=== PATIENT | male | born 1955 | race Caucasian/White ===

== ENCOUNTER → 2017-03-07 | Outpatient (CLI) | payer OTHER ==
--- NOTE | 2017-03-07 14:15 | CT ---
EXAMINATION TYPE: CT iac wo con DATE OF EXAM: 03/07/2017 COMPARISON: NONE HISTORY: 61-year-old male complains of left side hearing loss and drainage. Cholesteatoma. CT DLP: 150 mGycm Automated exposure control for dose reduction was used. TECHNIQUE: Contiguous high-resolution axial scanning of the temporal bones performed without contras t. Coronal reformatted images obtained. FINDINGS: There is no abnormality of visualized intracranial structures. Bilateral external auditory canals appear patent. Extensive post surgical changes to the left mastoid bone with large contiguous resection cavity betwe en the mastoid air cells and middle ear cavity. There is some irregular soft tissue thickening around the margin of the resection cavity. Opacification of some residual mastoid air cells on the left. 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 The right middle ear cavity and mastoid air cells remain well pneumatized. Unable to exclude small area of dehiscence of the wall of the left lateral semicircular canal, refer to axial image 35 and coronal image 75. The vestibular aqueduct are well visualized. The facial nerve canal is normal bilaterally. The internal auditory canal and meati are symmetrical bilaterally. There is no evidence of fractures. Mild mucosal thickening throughout the ethmoid air cells. Reformatted images confirm above findings. IMPRESSION: 1. Extensive postsurgical changes involving the left temporal bone with a contiguous resection cavity involving the mastoid air cells and middle ear cavity. 2. Some irregular soft tissue thickening around the margin of the resection cavity could represent sc ar tissue, inflammatory debris, or residual cholesteatoma. The few residual mastoid air cells on this side are opacified. 3. An ovoid 7 x 3 mm ossicle, bone debris, or osteoma interposed in the anterior crevice of the left middle ear cavity. The normal middle ear anatomy is lost. 4. Severe bony thickening, possible bony dehiscence involving the wall of the left lateral semicircul ar canal, axial image 35 and coronal image 75.
== END | disposition home or self-care (01) ==
LOC: RADCTMAIN 13:04
PROVIDERS: ATTEND Otolaryngology
DX: R93.7 Abnormal findings on diagnostic imaging of other parts of musculoskeletal system (principal); H91.90 Unspecified hearing loss, unspecified ear; H71.92 Unspecified cholesteatoma, left ear; Z98.890 Other specified postprocedural states
CPT/HCPCS: 70480

== ENCOUNTER 2019-09-13 15:23 | Emergency (ER) | payer OTHER ==
[2019-09-13 15:30] VITALS: RESP 18
--- NOTE | 2019-09-13 15:51 | ED ---
General Adult HPI - General Chief complaint: Extremity Injury, Upper Stated complaint: right hand Time Seen by Provider: 09/13/19 15:39 Source: patient Mode of arrival: ambulatory Limitations: no limitations - History of Present Illness Initial comments: Dictation was produced using [employer] dictation software. please excuse any grammatical, word or spelling errors. This patient was cared for during a federal and state declared state of emergency secondary to Covid 19 Chief Complaint: 63-year-old male presents with crush injury to the right hand. History of Present Illness: 63-year-old male he [facility]. Patient states he was working on his motorcycle when he was resting his hand on a plastic piece on top of a motor. A metal pole crushed his hand causing. The plastic piece under his volar surface of the hand shattered. Patient denies any motor weakness of the hand. He was [facility] at [facility] was performed showing second metacarpal fracture. He was sent here due to concerns of possible plastic foreign body embedded in the hand from the crush injury. He had 3 small lacerations that were repaired on the dorsum of the hand using she nylon sutures. He has no other complaints. The ROS documented in this emergency department record has been reviewed and confirmed by me. Those systems with pertinent positive or negative responses have been documented in the HPI. All other systems are other negative and/or noncontributory. PHYSICAL EXAM: General Impression: Alert and oriented x3, not in acute distress HEENT: Normocephalic atraumatic, extra-ocular movements intact, pupils equal and reactive to light bilaterally, mucous membranes moist. Cardiovascular: Heart regular rate and rhythm Chest: Able to complete full sentences, no retractions, no tachypnea Abdomen: abdomen soft, non-tender, non-distended, no organomegaly Musculoskeletal: Pulses present and equal in all extremities, no peripheral edema Motor: no focal deficits noted Right hand: soiled with what appears to be motor debris. There are 3 simple interrupted sutures on the dorsum of the hand. There is a 1 cm laceration over the volar surface of the hand just overlying the second MCP. Neurological: CN II-XII grossly intact, no focal motor or sensory deficits noted Skin: Intact with no visualized rashes Psych: Normal affect and mood ED course: 63-year-old male presents with crush injury and laceration to the right hand. Vital signs upon arrival are within acceptable limits. Patient has no motor deficits. He does state that he is known to same parts of his hand. He states that he did receive local anesthesia from the suture repair. His motor function is intact however antalgic. X-rays obtained showing displaced fracture of the second metacarpal. There is a laceration to the volar side of the hand concerning for open fracture. She does not reveal any foreign bodies. Physical examination does not show any exposed bone. Case is discussed in detail with Xena who is therapeutic recreation leader for advanced orthopedics. She was set patient be placed in a radial gutter splint and discharge to follow up with orthopedic surgery clinic for follow-up. She does not recommend immediate operative intervention at this time. Patient given a dose of Ancef. He will be given prescription for antibiotics and analgesics. Patient referral to orthopedic surgery. He is advised to contact the office tomorrow to make an appointment. - Related Data Previous Rx's Medication Instructions Recorded Cephalexin [Keflex] 500 mg PO Q6HR 5 Days #20 cap 09/13/19 HYDROcodone/APAP 5-325MG [[place] 1 tab PO Q6HR PRN 3 Days #12 tab 09/13/19 5-325] Allergies Allergy/AdvReac Type Severity Reaction Status Date / Time No Known Allergies Allergy Verified 09/13/19 15:26 Review of Systems ROS Statement: Those systems with pertinent positive or pertinent negative responses have been documented in the HPI. ROS Other: All systems not noted in ROS Statement are negative. Past Medical History Past Medical History: No Reported History History of Any Multi-Drug Resistant Organisms: None Reported Past Surgical History: Ear Surgery Past Psychological History: No Psychological Hx Reported Smoking Status: Never smoker Past Alcohol Use History: None Reported Past Drug Use History: None Reported General Exam Limitations: no limitations Course Vital Signs 09/13/19 15:26 Temperature 98 F Pulse Rate 79 Respiratory 18 Rate Blood Pressure 134/76 O2 Sat by Pulse 97 Oximetry Procedures - Orthopedic Splinting/Casting Injury #1 Side: right Upper Extremity Injury Location: hand Upper Extremity Immobilizer: finger (other) (radial gutter) Disposition Clinical Impression: Metacarpal bone fracture, Crush injury of hand Disposition: HOME SELF-CARE Condition: Fair Instructions (If sedation given, give patient instructions): Hand Fracture (ED) Prescriptions: Cephalexin [Keflex] 500 mg PO Q6HR 5 Days #20 cap HYDROcodone/APAP 5-325MG [[place] 5-325] 1 tab PO Q6HR PRN 3 Days #12 tab PRN Reason: Severe Pain Is patient prescribed a controlled substance at d/c from ED?: Yes If prescribed controlled substance>3 days was MAPS reviewed?: Prescribed <3 Days Referrals: Js Contreras DO [Doctor of Osteopathic Medicine] - 1-2 days Time of Disposition: 17:20
[2019-09-13] MEDS ORDERED: DIPH,PERTUS(ACELL)TETVAC-LF 0.5 ML VIAL IM ONE (16:18)
--- NOTE | 2019-09-13 16:19 | XR ---
EXAMINATION TYPE: XR hand complete RT DATE OF EXAM: 09/13/2019 COMPARISON: NONE HISTORY: Pain TECHNIQUE: Three views are submitted. FINDINGS: There is a displaced comminuted fracture involving the distal right second metacarpal. Soft tissue ed burke and emphysema noted. IMPRESSION: 1. Displaced fracture second metacarpal.
[2019-09-13 17:34] VITALS: BP 127/74; PULSE 78; TEMP 98.2
== END 2019-09-13 17:34 | disposition home or self-care (01) ==
LOC: EC 15:23
DX: S62.390A Other fracture of second metacarpal bone, right hand, initial encounter for closed fracture (principal); S61.411A Laceration without foreign body of right hand, initial encounter; Z23 Encounter for immunization; W23.0XXA Caught, crushed, jammed, or pinched between moving objects, initial encounter; Y93.89 Activity, other specified
CPT/HCPCS: 73130; 90715; 99283; 96365; 90471; 12001; J0690

== ENCOUNTER 2020-05-14 22:30 | Emergency (ER) | payer OTHER ==
[2020-05-15 00:30] LABS: Potassium 4.2 mmol/L (3.5-5.1)
--- NOTE | 2020-05-15 00:43 | ED ---
Recheck HPI - General Chief Complaint: Recheck/Abnormal Lab/Rx Stated Complaint: Irregular Labs Time Seen by Provider: 05/15/20 00:38 Source: patient, RN notes reviewed Mode of arrival: ambulatory Limitations: physical limitation - History of Present Illness Initial Comments: Patient is a 64-year-old male that comes the ER to get rechecked labs due to [facility] He is in no apparent distress pain while standing up during exam and interview. He notes that he feels fine and has no chest pain or shortness of breath no palpitations. He denied any complaints or issues. He denied any chest pain shortness breath headache nausea vomiting diarrhea constipation fever fatigue chills. - Related Data Previous Rx's Medication Instructions Recorded Cephalexin [Keflex] 500 mg PO Q6HR 5 Days #20 cap 09/13/19 HYDROcodone/APAP 5-325MG [[place] 1 tab PO Q6HR PRN 3 Days #12 tab 09/13/19 5-325] Allergies Allergy/AdvReac Type Severity Reaction Status Date / Time No Known Allergies Allergy Verified 05/14/20 23:42 Review of Systems ROS Statement: Those systems with pertinent positive or pertinent negative responses have been documented in the HPI. ROS Other: All systems not noted in ROS Statement are negative. Past Medical History Past Medical History: No Reported History Additional Past Medical History / Comment(s): [place]- deaf on lt History of Any Multi-Drug Resistant Organisms: None Reported Past Surgical History: Back Surgery, Ear Surgery Past Psychological History: No Psychological Hx Reported Smoking Status: Never smoker Past Alcohol Use History: None Reported Past Drug Use History: None Reported General Exam Limitations: physical limitation General appearance: alert, in no apparent distress Head exam: Present: atraumatic, normocephalic, normal inspection Eye exam: Present: normal appearance, PERRL, EOMI. Absent: scleral icterus, conjunctival injection, periorbital swelling ENT exam: Present: normal exam, mucous membranes moist, other (Patient is hard of hearing on the left side.) Neck exam: Present: normal inspection. Absent: tenderness, meningismus, lymphadenopathy Respiratory exam: Present: normal lung sounds bilaterally. Absent: respiratory distress, wheezes, rales, rhonchi, stridor Cardiovascular Exam: Present: regular rate, normal rhythm, normal heart sounds. Absent: systolic murmur, diastolic murmur, rubs, gallop, clicks GI/Abdominal exam: Present: soft, normal bowel sounds. Absent: distended, tenderness, guarding, rebound, rigid Extremities exam: Present: normal inspection, full ROM, normal capillary refill. Absent: tenderness, pedal edema, joint swelling, calf tenderness Neurological exam: Present: alert, oriented X3, CN II-XII intact Psychiatric exam: Present: normal affect, normal mood Skin exam: Present: warm, dry, intact, normal color. Absent: rash Course Vital Signs 05/14/20 23:37 Temperature 98.7 F Pulse Rate 75 Respiratory 18 Rate Blood Pressure 135/84 O2 Sat by Pulse 95 Oximetry Medical Decision Making - Medical Decision Making 64-year-old male with abnormal labs at the [facility] on 05/14/2020, potassium of 6.1. Lites ordered, all within normal limits. Case discussed with Dr. Kent, she can discharge home. - Lab Data Result diagrams: 05/14/20 23:53 Lab Results 05/14/20 Range/Units 23:53 Sodium 138 (137-145) mmol/L Potassium 4.2 (3.5-5.1) mmol/L Chloride 105 (98-107) mmol/L Carbon Dioxide 25 (22-30) mmol/L Anion Gap 8 mmol/L Disposition Clinical Impression: Hyperkalemia Disposition: HOME SELF-CARE Condition: Stable Instructions (If sedation given, give patient instructions): Hyperkalemia (ED) Additional Instructions: Please return to the Emergency Department if symptoms worsen or any other concerns. Follow-up primary care in 3-5 days. Continue to increase oral fluid intake. If any chest pain or palpitations please return the emergency Department Is patient prescribed a controlled substance at d/c from ED?: No Referrals: [facility],Clinic [Primary Care Provider] - 1-2 days Time of Disposition: 00:43
[2020-05-15 01:30] VITALS: BP 141/65; PULSE 72; RESP 20; TEMP 98.3
== END 2020-05-15 01:00 | disposition home or self-care (01) ==
LOC: EC 22:30
DX: E87.5 Hyperkalemia (principal)
CPT/HCPCS: 36415; 80051; 93005; 99285

== ENCOUNTER 2020-11-28 22:47 | Emergency (ER) | payer OTHER ==
[2020-11-28 23:47] LABS: Basophils # (A) 0.1 k/uL (0-0.2); Basophils % (A) 0 %; Eosinophils # (A) 0.2 k/uL (0-0.7); Eosinophils % (A) 1 %; HCT 47.7 % (39.0-53.0); HGB 16.6 gm/dL (13.0-17.5); Lymphocytes # (A) 2.5 k/uL (1.0-4.8); Lymphocytes % (A) 18 %; MCH 31.7 pg (25.0-35.0); MCHC 34.8 g/dL (31.0-37.0); Mean Platelet Volume 9.2; Monocytes # (A) 0.7 k/uL (0-1.0); Monocytes % (A) 5 %; Neutrophils # (A) 10.7 k/uL (1.3-7.7); Neutrophils % (A) 75 %; Platelet Count 202 k/uL (150-450); RBC 5.25 m/uL (4.30-5.90); RDW 12.3 % (11.5-15.5); WBC 14.3 k/uL (3.8-10.6)
[2020-11-28] MEDS ORDERED: LORazepam 2 MG/ML INJ IV STA (23:50)
[2020-11-29 00:07] LABS: INR 0.9 (<1.2); Partial Thromboplastin Time 24.2 sec (22.0-30.0); Prothrombin Time 10.2 sec (9.0-12.0)
[2020-11-29 00:09] LABS: ALT 22 U/L (4-49); AST 32 U/L (17-59); African American GFR (CKD) 80 (>60 ml/min/1.73 sqM); Alcohol <10 mg/dL; Alkaline Phosphatase 81 U/L (38-126); Anion Gap 8 mmol/L; Blood Urea Nitrogen 20 mg/dL (9-20); Calcium 9.5 mg/dL (8.4-10.2); Carbon Dioxide 26 mmol/L (22-30); Chloride 104 mmol/L (98-107); Glucose 106 mg/dL (74-99); Magnesium 1.8 mg/dL (1.6-2.3); Non-African American GFR(CKD) 69 (>60 ml/min/1.73 sqM); Potassium 4.4 mmol/L (3.5-5.1); Sodium 138 mmol/L (137-145); Total Bilirubin 0.8 mg/dL (0.2-1.3); Total Protein 7.2 g/dL (6.3-8.2)
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
--- NOTE | 2020-11-29 00:48 | XR ---
EXAMINATION TYPE: XR chest 1V portable DATE OF EXAM: 11/29/2020 COMPARISON: NONE HISTORY: Cough TECHNIQUE: Single view FINDINGS: There is some mild coarse interstitial density in the lower lung nicole. There are chest le ads. There are no hilar masses. Bony thorax is intact. Heart size is normal. IMPRESSION: No active cardiopulmonary disease.
--- NOTE | 2020-11-29 01:07 | CT ---
EXAMINATION TYPE: CT brain wo con DATE OF EXAM: 11/29/2020 COMPARISON: None HISTORY: AMS. no prior on PACS. CT DLP: 1188.4 mGycm Automated exposure control for dose reduction was used. Ventricles have normal size. There is no mass effect nor midline shift. There is no sign of intracran ial hemorrhage. Calvarium is intact. Skull base is intact. There is limited pneumatization of the lef t mastoid sinus. There is previous surgery at the left temporal bone. IMPRESSION: No acute intracranial abnormality. Left mastoid sinus surgery. 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
[2020-11-29 03:04] LABS: Appearance,Urine Clear (Clear); Bilirubin,Urine Negative (Negative); Blood,Urine Negative (Negative); Color,Urine Yellow; Glucose,Urine (UA) Negative (Negative); Ketones,Urine Negative (Negative); Leukocyte Esterase,Urine Negative (Negative); Nitrite,Urine Negative (Negative); Protein,Urine Negative (Negative); Specific Gravity,Urine 1.018 (1.001-1.035); Urobilinogen,Urine <2.0 mg/dL (<2.0)
[2020-11-29 03:16] LABS: Amphetamine Screen,Urine Not Detected (NotDetected); Barbiturate Screen,Urine Not Detected (NotDetected); Benzodiazepines Screen,Urine Detected (NotDetected); Cocaine Screen,Urine Not Detected (NotDetected); Methadone Screen, Urine Not Detected (NotDetected); Opiate Screen,Urine Not Detected (NotDetected); Oxycodone Screen, Urine Not Detected (NotDetected); Phencyclidine Screen,Urine Not Detected (NotDetected); Tricyclic Antidepressant,Urine Not Detected (NotDetected); Urn Cannabinoid Scrn Not Detected (NotDetected)
[2020-11-29 03:46] VITALS: BP 114/78; PULSE 96; RESP 20; TEMP 98.7
== END 2020-11-29 02:55 | disposition home or self-care (01) ==
LOC: EC 22:47
DX: T78.40XA Allergy, unspecified, initial encounter (principal)
CPT/HCPCS: 36415; 93005; 85379; 83880; 80053; 83605; 83735; 84484; 85025; 85610; 85730; 81003; 80306; 80320; 71045; 70450; 99285; 96374; J2060

== ENCOUNTER → 2022-08-11 | Outpatient (CLI) | payer OTHER ==
--- NOTE | 2022-08-12 10:17 | CA ---
Transthoracic Echo Report Name: Lenader Underwood Age: 66 Gender: M : 1955 Exam Date: 08/11/2022 13:04 Exam Location: [facility] Ht (in): 68 Wt (lb): 165 Ordering Physician: AMADO ND, Clinic Attending/Referring Phys: Dioni Roe PAC Manager [place] Criss Medina RDCS Procedure CPT: Indications: R55 Syncope Cardiac Hx: Technical Quality: Good Contrast 1: Total Dose (mL): Contrast 2: Total Dose (mL): MEASUREMENTS (Male / Female) Normal Values 2D ECHO LV Diastolic Diameter PLAX 4.1 cm 4.2 - 5.9 / 3.9 - 5.3 cm LV Systolic Diameter PLAX 2.8 cm IVS Diastolic Thickness 0.9 cm 0.6 - 1.0 / 0.6 - 0.9 cm LVPW Diastolic Thickness 1.0 cm 0.6 - 1.0 / 0.6 - 0.9 cm LV Relative Wall Thickness 0.5 RV Internal Dim ED PLAX 3.5 cm LA Systolic Diameter LX 3.4 cm 3.0 - 4.0 / 2.7 - 3.8 cm LV Diastolic Volume MOD 4C 60.8 cm??? LV Systolic Volume MOD 4C 31.5 cm??? LV Ejection Fraction MOD 4C 48.2 % LV Cardiac Index MOD 4C 1169.7 cm???/min???m??? LV Diastolic Length 4C 7.7 cm LV Systolic Length 4C 6.0 cm LV Diastolic Volume MOD 2C 75.8 cm??? LV Systolic Volume MOD 2C 29.6 cm??? LV Ejection Fraction MOD 2C 61.0 % LV Cardiac Index MOD 2C 1845.7 cm???/min???m??? LV Diastolic Length 2C 7.9 cm LV Systolic Length 2C 6.2 cm LA Volume 50.7 cm??? 18 - 58 / 22 - 52 cm??? M-MODE Aortic Root Diameter MM 3.7 cm MV E Point Septal Separation 1.0 cm AV Cusp Separation MM 2.4 cm DOPPLER AV Peak Velocity 121.4 cm/s AV Peak Gradient 5.9 mmHg AI Peak Velocity 360.0 cm/s AI Peak Gradient 51.8 mmHg AI Pressure Half Time 939.0 ms MV Area PHT 2.6 cm??? Mitral E Point Velocity 71.3 cm/s Mitral A Point Velocity 90.7 cm/s Mitral E to A Ratio 0.8 MV Deceleration Time 289.1 ms MV E' Velocity 4.6 cm/s Mitral E to MV E' Ratio 15.5 TR Peak Velocity 220.0 cm/s TR Peak Gradient 19.4 mmHg Right Ventricular Systolic Press 24.0 mmHg FINDINGS Left Ventricle Left ventricular ejection fraction is estimated at 55-60 %. Left ventricular cavity size normal. Left ventricular wall thickness normal. Normal left ventricular wall motion. Right Ventricle Mild right ventricular dilatation. Right ventricular systolic pressure within normal limits. Right Atrium Normal right atrial size. Left Atrium Normal left atrial size. Mitral Valve Structurally normal mitral valve. No mitral stenosis. Trace to mild mitral regurgitation. Aortic Valve Trileaflet aortic valve. Mild aortic regurgitation. Tricuspid Valve Structurally normal tricuspid valve. Mild tricuspid regurgitation. Pulmonic Valve Structurally normal pulmonic valve. Mild pulmonic regurgitation. Pericardium Normal pericardium. No pericardial effusion. Aorta Normal size aortic root and proximal ascending aorta. CONCLUSIONS Normal LV size and systolic function. Mild mitral tricuspid and aortic insufficiency. No significant pulmonary hypertension. No pericardial effusion Previewed by: Dr. Imtiaz Iglesias MD (Electronically Signed) Final Date: 12 August 2022 10:16
== END | disposition home or self-care (01) ==
LOC: RADECHMAIN 12:56
DX: I08.1 Rheumatic disorders of both mitral and tricuspid valves (principal); R55 Syncope and collapse
CPT/HCPCS: 93306

== ENCOUNTER 2022-11-08 16:45 | Observation (INO) | payer OTHER ==
[2022-11-08] MEDS ORDERED: IPRATROPIUM-ALBUTEROL 3 ML NEB INHALATION STA ×3 (17:12→17:53)
[2022-11-08] MEDS ORDERED: SODIUM CHLORIDE 0.9% 1,000 ML IV STA (17:12)
[2022-11-08] MEDS ORDERED: LORazepam 2 MG/ML INJ IV STA (17:12)
[2022-11-08] MEDS ORDERED: MORPHINE SULFATE 2 MG/ML SYRINGE IVP STA (17:12)
--- NOTE | 2022-11-08 17:13 | ED ---
SOB HPI - General Stated Complaint: SOB Time Seen by Provider: 11/08/22 16:53 Source: RN notes reviewed, old records reviewed Mode of arrival: EMS Limitations: no limitations - History of Present Illness Initial Comments: This is a 66-year-old male to the emergency department for evaluation. Patient presents today for evaluation regards to severe shortness of breath syncopal e vent. Patient does have a history of heart appearing was at urgent care today when he was given a breathing treatment had difficulty breathing became allegedly bronchospastic and passed out. Patient does have history of equilibrium imbalance loss of frequent syncopal events. Patient admits to mary condon shortness of breath Complaint: shortness of breath, cough, "asthma attack", anxiety -: hour(s) Severity: severe Severity scale (1-10): 9 Consistency: constant Improves With: nothing Worsens With: nothing Associated Symptoms: pain with inspiration, cough, other (Syncopal event) Treatments Prior to Arrival: none - Related Data Home Medications Medication Instructions Recorded Confirmed hydroCHLOROthiazide [Hydrodiuril] 12.5 mg PO DAILY 11/08/22 11/08/22 Previous Rx's Medication Instructions Recorded Famotidine 20 mg PO DAILY #30 tablet 11/10/22 Fluticasone Nasal [place] [Flonase 1 spray EA NOSTRIL DAILY #16 gm 11/10/22 Nasal [place]] lamoTRIgine [LaMICtal] See Rx Instructions .ROUTE 11/10/22 .COMPLEX #252 tab Allergies Allergy/AdvReac Type Severity Reaction Status Date / Time No Known Allergies Allergy Verified 11/08/22 18:59 Review of Systems ROS Statement: Those systems with pertinent positive or pertinent negative responses have been documented in the HPI. ROS Other: All systems not noted in ROS Statement are negative. Past Medical History Past Medical History: No Reported History Additional Past Medical History / Comment(s): [place]- deaf on lt History of Any Multi-Drug Resistant Organisms: None Reported Past Surgical History: Back Surgery, Ear Surgery Past Psychological History: No Psychological Hx Reported Smoking Status: Never smoker Past Alcohol Use History: None Reported Past Drug Use History: None Reported General Exam General appearance: alert, in no apparent distress, anxious Head exam: Present: atraumatic, normocephalic, normal inspection Eye exam: Present: normal appearance, PERRL, EOMI. Absent: scleral icterus, conjunctival injection, periorbital swelling ENT exam: Present: normal exam, mucous membranes moist Neck exam: Present: normal inspection. Absent: tenderness, meningismus, lympha denopathy Respiratory exam: Present: normal lung sounds bilaterally. Absent: respiratory distress, wheezes, rales, rhonchi, stridor Cardiovascular Exam: Present: regular rate, normal rhythm, normal heart sounds. Absent: systolic murmur, diastolic murmur, rubs, gallop, clicks GI/Abdominal exam: Present: soft, normal bowel sounds. Absent: distended, tenderness, guarding, rebound, rigid Extremities exam: Present: normal inspection, full ROM, normal capillary refill. Absent: tenderness, pedal edema, joint swelling, calf tenderness Back exam: Present: normal inspection Neurological exam: Present: alert, oriented X3, CN II-XII intact Psychiatric exam: Present: normal affect, normal mood Skin exam: Present: warm, dry, intact, normal color. Absent: rash Course Vital Signs 11/08/22 11/08/22 11/08/22 16:46 17:53 18:00 Temperature 98.4 F Pulse Rate 91 90 96 Pulse Rate [ Pulse Oximetery ] Respiratory 34 H Rate Blood Pressure 113/63 Blood Pressure [Right Arm] O2 Sat by Pulse 98 Oximetry 11/08/22 11/08/22 11/08/22 19:00 22:00 23:00 Temperature Pulse Rate 80 78 Pulse Rate [ Pulse Oximetery ] Respiratory 19 18 18 Rate Blood Pressure 110/76 111/72 Blood Pressure [Right Arm] O2 Sat by Pulse 95 94 L 95 Oximetry 11/09/22 11/09/22 11/09/22 04:00 05:00 07:54 Temperature 97.4 F L Pulse Rate 76 Pulse Rate [ 74 Pulse Oximetery ] Respiratory 14 18 Rate Blood Pressure 109/72 Blood Pressure 126/82 [Right Arm] O2 Sat by Pulse 93 L 96 96 Oximetry 11/09/22 11/09/22 11/09/22 08:02 08:08 15:00 Temperature 97.6 F Pulse Rate 68 75 Pulse Rate [ 67 Pulse Oximetery ] Respiratory 16 16 18 Rate Blood Pressure Blood Pressure 115/77 [Right Arm] O2 Sat by Pulse 99 96 Oximetry - Reevaluation(s) Reevaluation #1: 11/08/22 19:52 Medical records reviewed Reevaluation #2: 11/08/22 19:52 Patient showing worsening symptoms here in the ER, worsening symptoms after breathing treatment with increased cough congestion and family concerned for some altered mental status Patient was just given morphine and Ativan Reevaluation #3: Patient informed results and questions answered Reevaluation #4: 11/08/22 19:53 Was pt. sent in by a medical professional or institution (, [facility], [facility], urgent care, hospital, or group home...) When possible be specific @ -no Did you speak to anyone other than the patient for history (EMS, parent, family, police, friend...)? What history was obtained from this source @ -no Did you review nursing and triage notes (agree or disagree)? Why? @ -agree Are old charts reviewed (outside hosp., previous admission, EMS record, old EKG, old radiological studies, urgent care reports/EKG's, group home records)? Report findings @ -yes Differential Diagnosis (chest pain, altered mental status, abdominal pain women, abdominal pain men, vaginal bleeding, weakness, fever, dyspnea, syncope, headache, dizziness, GI bleed, back pain, seizure, CVA, palpatations, mental health, musculoskeletal)? @ -prior EKG interpreted by me (3pts min.). @ -yes X-rays interpreted by me (1pt min.). @ -yes CT interpreted by me (1pt min.). @ -yes U/S interpreted by me (1pt. min.). @ -no What testing was considered but not performed or refused? (CT, X-rays, U/S, labs)? Why? @ -none What meds were considered but not given or refused? Why? @ -none Did you discuss the management of the patient with other professionals (professionals i.e. [facility] Patel, [facility], lab, RT, psych nurse, rn social work, farm management supervisor, teacher, budget officer, comp field case manager)? Give summary @ -no Was smoking cessation discussed for >3mins.? @ -no Was critical care preformed (if so, how long)? @ -no Were there social determinants of health that impacted care today? How? (Homelessness, low income, unemployed, alcoholism, drug addiction, transpo rtation, low edu. Level, literacy, decrease access to med. care, group home, rehab)? @ -none Was there de-escalation of care discussed even if they declined (Discuss DNR or withdrawal of care, Hospice)? DNR status @ -no What co-morbidities impacted this encounter? (DM, HTN, Smoking, COPD, CAD, Cancer, CVA, ARF, Chemo, Hep., AIDS, mental health diagnosis, sleep apnea, morbid obesity)? @ -none Was patient admitted / discharged? Hospital course, mention meds given and route, prescriptions, significant lab abnormalities, going to OR and other pertinent info. @ - 67 male to the emergency department for evaluation. Patient presents today for evaluation of severe bronchitis and COPD with bronchospasm but improving here in the ER although patient has multiple recurrent syncopal events. Patient be admitted for cause of syncope Admitted Undiagnosed new problem with uncertain prognosis? @ -no Drug Therapy requiring intensive monitoring for toxicity (Heparin, Nitro, Insulin, Cardizem)? @ -no Were any procedures done? @ -no Diagnosis/symptom? @ -Syncope, bronchospasm, dyspnea Acute, or Chronic, or Acute on Chronic? @ -Acute Uncomplicated (without systemic symptoms) or Complicated (systemic symptoms)? @ -Complicated Side effects of treatment? @ -no Exacerbation, Progression, or Severe Exacerbation? @ -exacerbation Poses a threat to life or bodily function? How? (Chest pain, [place], [place], pneumonia, PE, COPD, DKA, ARF, appy, cholecystitis, CVA, Diverticulitis, Homicidal, Suicidal, threat to staff... and all critical care pts) @ -yes Reevaluation #5: 11/08/22 19:53 Differential Dyspnea: Coronary syndrome, arrhythmia, tamponade, asthma, COPD, pulmonary embolism, pneumonia, pneumothorax, pulmonary effusion, anaphylaxis, diabetic ketoacidosis, flailed chest, pulmonary contusion, diaphragmatic rupture, anemia, neuromuscular, this is not meant to be an all-inclusive list. Differential Syncope: Valvular disease, hypertrophic cardiomyopathy, pulmonary embolism, tamponade, tachycardia, bradycardia, [place], hypovolemia, hemorrhage, dissection, anemia, intracranial hemorrhage, seizure, hypoglycemia, carbon monoxide poisoning, this is not meant to be an all-inclusive list. - Consultations Consultation #1: Spoke with sound who agrees to admit the patient Medical Decision Making - Medical Decision Making 67 male to the emergency department for evaluation. Patient presents today for evaluation of severe bronchitis and COPD with bronchospasm but improving here in the ER although patient has multiple recurrent syncopal events. Patient be admitted for cause of syncope - Lab Data Result diagrams: 11/09/22 06:53 11/09/22 06:53 Lab Results 11/08/22 11/08/22 11/08/22 Range/Units 18:02 18:02 19:13 WBC 14.3 H (3.8-10.6) k/uL RBC 5.36 (4.30-5.90) m/uL Hgb 16.4 (13.0-17.5) gm/dL Hct 48.2 (39.0-53.0) % MCV 90.0 (80.0-100.0) fL MCH 30.7 (25.0-35.0) pg MCHC 34.1 (31.0-37.0) g/dL RDW 13.2 (11.5-15.5) % Plt Count 228 (150-450) k/uL MPV 9.9 Neutrophils % 84 % Lymphocytes % 12 % Monocytes % 3 % Eosinophils % 1 % Basophils % 0 % Neutrophils # 12.1 H (1.3-7.7) k/uL Lymphocytes # 1.7 (1.0-4.8) k/uL Monocytes # 0.4 (0-1.0) k/uL Eosinophils # 0.1 (0-0.7) k/uL Basophils # 0.0 (0-0.2) k/uL PT 10.6 (9.0-12.0) sec INR 1.0 (<1.2) APTT 23.8 (22.0-30.0) sec D-Dimer 0.66 H (<0.60) mg/L FEU Sodium (137-145) mmol/L Potassium (3.5-5.1) mmol/L Chloride (98-107) mmol/L Carbon Dioxide (22-30) mmol/L Anion Gap mmol/L BUN (9-20) mg/dL Creatinine (0.66-1.25) mg/dL Est GFR (CKD-EPI)AfAm (>60 ml/min/1.73 sqM) Est GFR (CKD-EPI)NonAf (>60 ml/min/1.73 sqM) Glucose (74-99) mg/dL Calcium (8.4-10.2) mg/dL Magnesium (1.6-2.3) mg/dL Total Bilirubin (0.2-1.3) mg/dL AST (17-59) U/L ALT (4-49) U/L Alkaline Phosphatase (38-126) U/L Troponin I (0.000-0.034) ng/mL NT-Pro-B Natriuret Pep pg/mL Total Protein (6.3-8.2) g/dL Albumin (3.5-5.0) g/dL Influenza Type A (PCR) Not Detected (Not Detectd) Influenza Type B (PCR) Not Detected (Not Detectd) RSV (PCR) Not Detected (Not Detectd) SARS-CoV-2 (PCR) Not Detected (Not Detectd) 11/08/22 11/08/22 Range/Units 19:55 19:55 WBC (3.8-10.6) k/uL RBC (4.30-5.90) m/uL Hgb (13.0-17.5) gm/dL Hct (39.0-53.0) % MCV (80.0-100.0) fL MCH (25.0-35.0) pg MCHC (31.0-37.0) g/dL RDW (11.5-15.5) % Plt Count (150-450) k/uL MPV Neutrophils % % Lymphocytes % % Monocytes % % Eosinophils % % Basophils % % Neutrophils # (1.3-7.7) k/uL Lymphocytes # (1.0-4.8) k/uL Monocytes # (0-1.0) k/uL Eosinophils # (0-0.7) k/uL Basophils # (0-0.2) k/uL PT (9.0-12.0) sec INR (<1.2) APTT (22.0-30.0) sec D-Dimer (<0.60) mg/L FEU Sodium 139 (137-145) mmol/L Potassium 3.4 L (3.5-5.1) mmol/L Chloride 108 H (98-107) mmol/L Carbon Dioxide 21 L (22-30) mmol/L Anion Gap 10 mmol/L BUN 17 (9-20) mg/dL Creatinine 1.08 (0.66-1.25) mg/dL Est GFR (CKD-EPI)AfAm 82 (>60 ml/min/1.73 sqM) Est GFR (CKD-EPI)NonAf 71 (>60 ml/min/1.73 sqM) Glucose 121 H (74-99) mg/dL Calcium 8.7 (8.4-10.2) mg/dL Magnesium 1.8 (1.6-2.3) mg/dL Total Bilirubin 0.8 (0.2-1.3) mg/dL AST 29 (17-59) U/L ALT 21 (4-49) U/L Alkaline Phosphatase 77 (38-126) U/L Troponin I <0.012 (0.000-0.034) ng/mL NT-Pro-B Natriuret Pep <20 pg/mL Total Protein 6.6 (6.3-8.2) g/dL Albumin 3.7 (3.5-5.0) g/dL Influenza Type A (PCR) (Not Detectd) Influenza Type B (PCR) (Not Detectd) RSV (PCR) (Not Detectd) SARS-CoV-2 (PCR) (Not Detectd) - EKG Data -: EKG Interpreted by Me (EKG is sinus 80 RI 169 QRS 93 QTc 441) - Radiology Data Radiology results: report reviewed (Chest x-ray CT chest negative for acute disease), image reviewed Disposition Clinical Impression: Acute exacerbation of chronic obstructive pulmonary disease, Acute respiratory failure, Syncope Disposition: ADMITTED IP TO THIS HOSP Condition: Fair Is patient prescribed a controlled substance at d/c from ED?: No Time of Disposition: 22:50
--- NOTE | 2022-11-08 17:55 | XR ---
EXAMINATION TYPE: XR chest 1V portable DATE OF EXAM: 11/08/2022 5:44 PM CLINICAL INDICATION:Male, 66 years old with history of cough; [facility]PAR[facility]: 11/29/2020 TECHNIQUE: XR chest 1V portable Frontal view of the chest. FINDINGS: Lungs/Pleura: There is no evidence of pleural effusion, focal consolidation, or pneumothorax. Pulmonary vascularity: Unremarkable. Heart/mediastinum: Cardiomediastinal silhouette is unremarkable. Musculoskeletal: No acute osseous pathology. IMPRESSION: No acute cardiopulmonary disease/process.
[2022-11-08 18:36] LABS: Basophils % (A) 0 %; Eosinophils # (A) 0.1 k/uL (0-0.7); Eosinophils % (A) 1 %; HCT 48.2 % (39.0-53.0); HGB 16.4 gm/dL (13.0-17.5); Lymphocytes # (A) 1.7 k/uL (1.0-4.8); Lymphocytes % (A) 12 %; MCH 30.7 pg (25.0-35.0); MCHC 34.1 g/dL (31.0-37.0); Mean Platelet Volume 9.9; Monocytes # (A) 0.4 k/uL (0-1.0); Monocytes % (A) 3 %; Neutrophils # (A) 12.1 k/uL (1.3-7.7); Neutrophils % (A) 84 %; Platelet Count 228 k/uL (150-450); RBC 5.36 m/uL (4.30-5.90); RDW 13.2 % (11.5-15.5); WBC 14.3 k/uL (3.8-10.6)
[2022-11-08 18:51] LABS: Partial Thromboplastin Time 23.8 sec (22.0-30.0); Prothrombin Time 10.6 sec (9.0-12.0)
[2022-11-08 20:41] LABS: ALT 21 U/L (4-49); AST 29 U/L (17-59); African American GFR (CKD) 82 (>60 ml/min/1.73 sqM); Albumin 3.7 g/dL (3.5-5.0); Alkaline Phosphatase 77 U/L (38-126); Anion Gap 10 mmol/L; Blood Urea Nitrogen 17 mg/dL (9-20); Calcium 8.7 mg/dL (8.4-10.2); Carbon Dioxide 21 mmol/L (22-30); Chloride 108 mmol/L (98-107); Glucose 121 mg/dL (74-99); Magnesium 1.8 mg/dL (1.6-2.3); Non-African American GFR(CKD) 71 (>60 ml/min/1.73 sqM); Potassium 3.4 mmol/L (3.5-5.1); Sodium 139 mmol/L (137-145); Total Bilirubin 0.8 mg/dL (0.2-1.3); Total Protein 6.6 g/dL (6.3-8.2)
[2022-11-08 20:49] LABS: NT-Pro-B-Type Natriuretic Pept <20 pg/mL
--- NOTE | 2022-11-08 21:29 | CT ---
EXAMINATION TYPE: CT angio chest CT DLP: 360.2 mGycm, Automated exposure control for dose reduction was used. DATE OF EXAM: 11/08/2022 9:19 PM COMPARISON: None CLINICAL INDICATION:Male, 66 years old with history of cp; CP, SOB, JW, Syncopal Episodes. TECHNIQUE/CONTRAST: CTA scan of the thorax is performed with IV Contrast, patient injected with 100 ml mL of Isovue 370, MIP images are created and reviewed these are created on a separate workstation.. FINDINGS: Pulmonary Artery: There is no evidence for a filling defect within the pulmonary vasculature to sugge st acute pulmonary embolism. The pulmonary artery is of normal size. Lungs/Pleura: No evidence of focal consolidation, pleural effusion or pneumothorax. Airway: Large airways are patent. Heart: Heart is within normal limits for size. Vasculature: No evidence of aortic aneurysm. Ascending thoracic aorta ectasia up to 4.4 cm's. Mediastinum: No gross evidence of adenopathy. Musculoskeletal: No acute osseous abnormalities Soft Tissues: Unremarkable. Lower neck: No significant findings. Upper Abdomen: Left hepatic lobe probable cyst. IMPRESSION: 1. No evidence of pulmonary embolism. 2. Ascending thoracic aorta ectasia up to 4.4 cm.
[2022-11-08] MEDS ORDERED: BENZONATATE 100 MG CAP PO STA (22:44)
[2022-11-08] MEDS ORDERED: MORPHINE SULFATE 4 MG/ML SYRINGE IV PRN (22:48)
[2022-11-08] MEDS ORDERED: NALOXONE 0.4 MG/ML 1 ML VIAL IV PRN (22:48)
[2022-11-08] MEDS ORDERED: ONDANSETRON 4 MG/2 ML VIAL IVP PRN (22:48)
[2022-11-08] MEDS ORDERED: SODIUM CHLORIDE 0.9% 1,000 ML IV SCH (23:00)
[2022-11-08] MEDS ORDERED: POTASSIUM BICARBONATE/CIT AC 20 MEQ TABLET.EFF PO ONE (23:00)
[2022-11-09] MEDS ORDERED: levETIRAcetam IV 1,000 MG in SODIUM CHLORIDE 0.9% 250 ML IVPB ONE (04:28)
--- NOTE | 2022-11-09 04:30 | P.HPIM ---
History of Present Illness H&P Date: 11/08/22 Patient is a 66-year-old male with a PMH of hypertension, PTSD from combat duty, hearing loss, and disequilibrium who presents to the emergency room for shortness of breath and unresponsiveness. The patient reports that he has been experiencing episodes of unresponsiveness over the past several months which have recently become more frequent. Patient reports he was doing yard work yesterday when he developed shortness of breath with wheezing and was seen at a local urgent care center and was given breathing treatments which alleviated his symptoms. He reports having multiple episodes of unresponsiveness, lasting for a few minutes, witnessed by his girlfriend who stated that he stares off into space without any seizure-like activity noted. He does experience a prodrome and is able to position himself for a possible episode. He denies history of seizure disorder. In the emergency room, chest CTA was unremarkable. EKG also reveals sinus rhythm at 80 bpm with left axis deviation as reviewed by me with poor R-wave progression. Laboratory evaluation is remarkable for leukocytosis of 14.3, potassium 3.4, glucose 121, troponin less than 0.012 and proBNP less than 20. ED documentation reviewed and case discussed with ED provider. Review of systems: Pertinent positives and negatives as discussed in HPI, a complete review of systems was performed and all other systems are negative. Physical examination: Vital signs reviewed General: non toxic, no distress, appears at stated age, overweight, hard of hearing Derm: no unusual rashes/lesions, warm Head: atraumatic, normocephalic, symmetric Eyes: EOMI, no lid lag, anicteric sclera, pupils equal round reactive to light ENT: Nose and ears atraumatic Neck: No cervical lymphadenopathy, trachea midline, supple Mouth: no lip lesion, mucus membranes moist Cardiovascular: S1S2 reg, no murmur, positive dorsalis pedis pulse bilateral, no edema Lungs: CTA bilateral, no rhonchi, no rales, no accessory muscle use Abdominal: soft, nontender to palpation, no guarding Ext: muscle strength 5 out of 5 in all 4 extremities grossly, no gross muscle atrophy, no contractures, Neuro: CN II-XI grossly intact, no gross focal neuro deficits Psych: Alert, oriented, appropriate affect Assessment: Episodes of unresponsiveness, suspicious for seizure Shortness of breath, unclear etiology, suspicious for asthma Hypokalemia Imaging: In the emergency room, chest CTA was unremarkable. EKG also reveals sinus rhythm at 80 bpm with left axis deviation as reviewed by me with poor R-wave progression. Data Review: Laboratory evaluation is remarkable for leukocytosis of 14.3, potassium 3.4, glucose 121, troponin less than 0.012 and proBNP less than 20. Plan: Initiate Keppra 500 mg by mouth twice a day Neurology consult Cardiac monitoring Echocardiogram Fall precautions Obtain orthostatics Continue with DuoNeb's as needed Replace potassium and monitor DVT prophylaxis: Lovenox Subq The patient is admitted with an anticipated less than 2 midnight stay for evaluation of syncope CODE STATUS: Full Code Discussed with: Patient Anticipated discharge place: Home Past Medical History Past Medical History: No Reported History Additional Past Medical History / Comment(s): [place] [employer] [employer] [place]- deaf on lt History of Any Multi-Drug Resistant Organisms: None Reported Past Surgical History: Back Surgery, Ear Surgery Past Psychological History: No Psychological Hx Reported Smoking Status: Never smoker Past Alcohol Use History: None Reported Past Drug Use History: None Reported Medications and Allergies Home Medications Medication Instructions Recorded Confirmed Type hydroCHLOROthiazide [Hydrodiuril] 12.5 mg PO DAILY 11/08/22 11/08/22 History Allergies Allergy/AdvReac Type Severity Reaction Status Date / Time No Known Allergies Allergy Verified 11/08/22 18:59 Physical Exam Vitals: Vital Signs Temp Pulse Resp BP Pulse Ox 11/08/22 22:00 80 18 110/76 94 L 11/08/22 19:00 19 95 11/08/22 18:00 96 11/08/22 17:53 90 11/08/22 16:46 98.4 F 91 34 H 113/63 98 Intake and Output 11/08/22 11/08/22 11/09/22 14:59 22:59 06:59 Other: Weight 79.379 kg Results CBC & Chem 7: 11/08/22 18:02 11/08/22 19:55 Labs: Abnormal Lab Results - Last 24 Hours (Table) 11/08/22 11/08/22 11/08/22 Range/Units 18:02 18:02 19:55 WBC 14.3 H (3.8-10.6) k/uL Neutrophils # 12.1 H (1.3-7.7) k/uL D-Dimer 0.66 H (<0.60) mg/L FEU Potassium 3.4 L (3.5-5.1) mmol/L Chloride 108 H (98-107) mmol/L Carbon Dioxide 21 L (22-30) mmol/L Glucose 121 H (74-99) mg/dL
[2022-11-09] MEDS ORDERED: levETIRAcetam IV 500 MG/5 ML VIAL IVP ONE (04:45)
[2022-11-09 07:14] LABS: African American GFR (CKD) >90 (>60 ml/min/1.73 sqM); Anion Gap 8 mmol/L; Blood Urea Nitrogen 16 mg/dL (9-20); Carbon Dioxide 21 mmol/L (22-30); Chloride 108 mmol/L (98-107); Glucose 126 mg/dL (74-99); Non-African American GFR(CKD) 84 (>60 ml/min/1.73 sqM); Potassium 4.9 mmol/L (3.5-5.1); Sodium 137 mmol/L (137-145)
[2022-11-09 07:33] LABS: HCT 45.6 % (39.0-53.0); HGB 15.4 gm/dL (13.0-17.5); MCH 30.8 pg (25.0-35.0); MCHC 33.7 g/dL (31.0-37.0); MCV 91.2 fL (80.0-100.0); Mean Platelet Volume 9.4; Platelet Count 207 k/uL (150-450); RDW 13.2 % (11.5-15.5); WBC 10.8 k/uL (3.8-10.6)
[2022-11-09] MEDS: ALBUTEROL NEBULIZED 1.25 MG/3 ML INHALATION SCH ×4 (08:00→18:33)
[2022-11-09] MEDS: IPRATROPIUM-ALBUTEROL 3 ML NEB INHALATION PRN (08:01)
[2022-11-09] MEDS: levETIRAcetam 500 MG TAB PO SCH ×2 (09:50→21:59)
[2022-11-09] MEDS: ENOXAPARIN 40 MG/0.4 ML SYRINGE SQ SCH (09:51)
--- NOTE | 2022-11-09 12:28 | CA ---
Transthoracic Echo Report Name: Leander Underwood Age: 66 Gender: M : 1955 Exam Date: 11/09/2022 08:49 Exam Location: [place] [facility] Ht (in): 67 Wt (lb): 175 Ordering Physician: Tristan Jansen MD Attending/Referring Phys: Chief Librarian Branch Criss Medina RDCS Procedure CPT: Indications: Syncope Cardiac Hx: Technical Quality: Good Contrast 1: Total Dose (mL): Contrast 2: Total Dose (mL): MEASUREMENTS (Male / Female) Normal Values 2D ECHO LV Diastolic Diameter PLAX 5.4 cm 4.2 - 5.9 / 3.9 - 5.3 cm LV Systolic Diameter PLAX 3.3 cm IVS Diastolic Thickness 0.8 cm 0.6 - 1.0 / 0.6 - 0.9 cm LVPW Diastolic Thickness 0.9 cm 0.6 - 1.0 / 0.6 - 0.9 cm LV Relative Wall Thickness 0.3 RV Internal Dim ED PLAX 3.7 cm LA Systolic Diameter LX 3.9 cm 3.0 - 4.0 / 2.7 - 3.8 cm LV Diastolic Volume MOD 4C 97.5 cm??? LV Systolic Volume MOD 4C 49.2 cm??? LV Ejection Fraction MOD 4C 49.5 % LV Cardiac Index MOD 4C 2223.7 cm???/min???m??? LV Diastolic Length 4C 7.7 cm LV Systolic Length 4C 6.0 cm LV Diastolic Volume MOD 2C 75.5 cm??? LV Systolic Volume MOD 2C 26.2 cm??? LV Ejection Fraction MOD 2C 65.3 % LV Cardiac Index MOD 2C 2269.0 cm???/min???m??? LV Diastolic Length 2C 7.3 cm LV Systolic Length 2C 5.7 cm LA Volume 59.8 cm??? 18 - 58 / 22 - 52 cm??? M-MODE Aortic Root Diameter MM 3.7 cm MV E Point Septal Separation 0.7 cm AV Cusp Separation MM 2.8 cm DOPPLER AV Peak Velocity 129.1 cm/s AV Peak Gradient 6.7 mmHg AI Peak Velocity 374.8 cm/s AI Peak Gradient 56.2 mmHg AI Pressure Half Time 740.3 ms MV Area PHT 2.4 cm??? Mitral E Point Velocity 75.6 cm/s Mitral A Point Velocity 91.7 cm/s Mitral E to A Ratio 0.8 MV Deceleration Time 312.1 ms TR Peak Velocity 220.5 cm/s TR Peak Gradient 19.5 mmHg Right Ventricular Systolic Press 24.5 mmHg FINDINGS Left Ventricle Left ventricular ejection fraction is estimated at 55-60 %. Left ventricular cavity size normal. Left ventricular wall thickness normal. Right Ventricle Mild right ventricular dilatation. Right ventricular systolic pressure within normal limits. Right Atrium Normal right atrial size. Left Atrium Mildly increased left atrial volume. Mitral Valve Structurally normal mitral valve. Trace to mild mitral regurgitation. Aortic Valve Trileaflet aortic valve. Aortic valve sclerosis. Mild aortic regurgitation. Tricuspid Valve Structurally normal tricuspid valve. Mild tricuspid regurgitation. Pulmonic Valve Structurally normal pulmonic valve. Mild pulmonic regurgitation. Pericardium No pericardial effusion. Aorta Normal size aortic root and proximal ascending aorta. AO arch 38 mm CONCLUSIONS Normal LV size and systolic function. Mild right ventricular prominence. Prominent aortic root. Mild mitral and tricuspid regurgitation. No pericardial effusion Previewed by: Dr. Imtiaz Iglesias MD (Electronically Signed) Final Date: 09 November 2022 12:27
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
--- NOTE | 2022-11-09 19:19 | EEG ---
ELECTROENCEPHALOGRAM REPORT CLINICAL HISTORY: This is a 66-year-old gentleman with history of posttraumatic disorder, who presents to the emergency department because of episodes of unresponsiveness and staring off. The video EEG is obtained to evaluate for seizure and epileptiform activity. RELEVANT MEDICATIONS: Keppra. EEG TYPE: A routine 21-channel EEG with video using the 10/20 electrode placement system. DESCRIPTION: Wakefulness is only obtained. During awake state, the posterior dominant rhythm consists of [id number] voltage of 9 to 10 Hz activity, that is well modulated and well sustained. There is no physiological stage II sleep architecture. There is no focal slowing. INTERICTAL AND ICTAL: During this study, the patient had multiple episodes of nonrhythmic body jerks with eye closure and head tremor. Electrographically, the background has diffuse mild-to- moderate myogenic artifact with the background being 9 to 10 Hz. There are no epileptiform discharges or seizure on the EEG. Two examples are he had nonrhythmic shaking of extremities with head shaking during the photic stimulation. One around 0526 of the recording, and the other one was at 0843 of the recording. Both are nonepileptic in nature. ACTIVATION PROCEDURE: Photic stimulation did not evoke a posterior driving response. There is no abnormality during the photic stimulation. Hyperventilation is not performed. CLINICAL INTERPRETATION: This is a normal routine EEG. There is no focal slowing, epileptiform discharge, or seizure on the EEG. The patient's episodes that were captured on the EEG are nonepileptic in nature. Clinical correlation is recommended. GONZALO / KANIKA: [id number] / MTDD
[2022-11-10 07:28] VITALS: RESP 16
[2022-11-10] MEDS: ENOXAPARIN 40 MG/0.4 ML SYRINGE SQ SCH (08:57)
[2022-11-10] MEDS: levETIRAcetam 500 MG TAB PO SCH (08:57)
[2022-11-10] MEDS ORDERED: hydroCHLOROthiazide 12.5 MG CAP PO SCH (09:00)
[2022-11-10] MEDS: IPRATROPIUM-ALBUTEROL 3 ML NEB INHALATION PRN ×2 (09:06→12:29)
[2022-11-10] MEDS: ALBUTEROL NEBULIZED 1.25 MG/3 ML INHALATION SCH ×2 (09:06→12:30)
--- NOTE | 2022-11-10 11:49 | P.PN ---
Subjective Progress Note Date: 11/10/22 I am following up with the patient and he feels he is doing well. Denies of any new neurological issues. Objective - Vital Signs Vital signs: Vital Signs Temp 98.0 F 11/10/22 07:00 Pulse 76 11/10/22 09:18 Resp 16 11/10/22 07:00 BP 112/79 11/10/22 07:00 Pulse Ox 98 11/10/22 07:00 FiO2 Intake & Output 11/09/22 11/10/22 11/10/22 18:59 06:59 18:59 Intake Total 118 Output Total 700 400 Balance -700 -400 118 Intake: Oral 118 Output: Urine 700 400 Other: Voiding Method Urinal Urinal # Bowel Movements 0 - Exam GENERAL: The patient is lying in bed and is not in acute distress. NEUROLOGICAL: Higher mental function: The patient is awake, alert, oriented to self, place and time. Patient is following commands. No aphasia and no neglect. Cranial nerves: The pupils are round, equal and reactive to light. Visual nicole are full to confrontation throughout. The facial strength is normal throughout. Hearing is very hard of hearing on the right and has complete hearing loss on the left. No dysarthria is noted. Shoulder shrug is normal bilaterally. Motor: The strength is 5 over 5 throughout. Normal tone and bulk. Cerebellum: Normal finger to nose bilaterally. Sensation: Sensation is normal to touch throughout. Some other workup during this hospital visit consisted of: Initial white blood cells is a 14.3 that trended down to 10.8 thousand slightly neutrophilic The serum glucose is 1.1, calcium is 8.7, magnesium is 1.8. AST ALT and sodium is within normal limits. TSH: 0.579 Routine EEG is normal. There is no focal slowing, epileptiform discharges or seizure on the EEG. The patient's episodes that were captured on the EEG are nonepileptic in nature. Clinical correlation is recommended. 2-D echo was reported as normal left ventricle size and systolic function. Mild right ventricular prominence at. PROM the aortic root. Mild mitral and tricuspid regurgitation. No pericardial effusion. - Labs CBC & Chem 7: 11/09/22 06:53 11/09/22 06:53 Assessment and Plan Assessment: This is a 66-year-old gentleman with history of hearing loss, ear surgery who presents to the emergency department because of episodes of unresponsiveness as well as having shortness of breath. It seems that the patient has been having unresponsive episodes for the past several months in which she stares off and last for few minutes. No history of seizure. Episodes of unresponsiveness with staring off. While examining the patient he had multiple episodes of repeated myoclonic jerks and was very slow to respond but the EEG did not show any evidence of a seizure or discharges and is non- epileptic in nature. Rule out psychogenic especially with his history of severe PTSD Shortness of breath Hearing loss and is severe out of the right ear and complete hearing loss out of left ear with history of ear surgery Hypertension PTSD Plan: The primary has loaded the patient with Keppra 1 g once then started the patient on Keppra 500mg every 12 hours. I continue the Keppra since the Keppra side effects is mood and behavioral issues and the patient has significant PTSD. I started the patient on Lamictal 25 mg daily and recommended to titrate the every once a week an additional 25 mg until 100 mg twice a day which she has more benefit as well as antiepileptic benefits. If patient develops any rash then the recommended discontinuing the Lamictal. Recommend her eye of the brain as an outpatient. His routine EEG is normal and his shaking episodes nonepileptic in nature. I commended a prolonged EEG as an outpatient to rule out any epileptic in nature in addition. Seizure because of seizure pads We'll defer the rest of the medical management to the primary team Defer the rest of the medical management to primary team Consider psychiatry consultation especially since he has severe PTSD and does not seek any help. Because of seizure per the [place] DMV, avoid driving for 6 month until seizure-free, avoid heights, avoids swimming unassisted. I commended the patient to follow-up with a neurologist as an outpatient within 1-2 weeks. The plan is discussed with patient and primary team. There is no further neurological work-up. Please notify neurology team if any further concerns. Time with Patient: Less than 30
[2022-11-10] MEDS ORDERED: lamoTRIgine 25 MG TAB PO SCH (12:30)
--- NOTE | 2022-11-10 13:38 | XR ---
EXAMINATION TYPE: XR chest 1V portable DATE OF EXAM: 11/10/2022 COMPARISON: 11/08/2022 HISTORY: Cough TECHNIQUE: Single frontal view of the chest is obtained. FINDINGS: Interstitial pattern with limited inspiration. Heart size normal. Apical pleural thickenin g. Diffuse osteopenia of the AC joint arthropathy. Coarsened interstitium. IMPRESSION: COPD correlate for chronic interstitial lung disease.
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
[2022-11-10 15:34] VITALS: BP 103/72; PULSE 56; TEMP 97.9
== END 2022-11-10 16:00 | disposition home or self-care (01) ==
LOC: EC 16:45 → 6NMEDSUR 22:52
PROVIDERS: ADMIT Internal Medicine; ATTEND Internal Medicine
DX: R55 Syncope and collapse (principal); J44.1 Chronic obstructive pulmonary disease with (acute) exacerbation; J96.00 Acute respiratory failure, unspecified whether with hypoxia or hypercapnia; H91.93 Unspecified hearing loss, bilateral; E87.6 Hypokalemia; R79.89 Other specified abnormal findings of blood chemistry; G25.3 Myoclonus; I10 Essential (primary) hypertension; D72.829 Elevated white blood cell count, unspecified; E87.8 Other disorders of electrolyte and fluid balance, not elsewhere classified; I77.810 Thoracic aortic ectasia; I08.1 Rheumatic disorders of both mitral and tricuspid valves; J31.0 Chronic rhinitis; K21.9 Gastro-esophageal reflux disease without esophagitis; F43.10 Post-traumatic stress disorder, unspecified; F41.9 Anxiety disorder, unspecified; Z20.822 Contact with and (suspected) exposure to COVID-19; Z79.899 Other long term (current) drug therapy; Z98.890 Other specified postprocedural states
CPT/HCPCS: 96372 ×2; 96374; 96375 ×2; 99285; 36415; 94640 ×4; 95816; 93005; 93306; 85379; 83880; 80053; 80048; 84443; 83735; 84484 ×2; 85025; 85027; 85610; 85730; 87636; 71045 ×2; 71275; G0378 ×3; J2060; J1650 ×2; J2270; J1953; Q9967

== ENCOUNTER 2022-12-12 15:03 | Emergency (ER) | payer OTHER ==
[2022-12-12 15:13] VITALS: RESP 18
[2022-12-12] MEDS ORDERED: SODIUM CHLORIDE 0.9% 1,000 ML IV STA (15:45)
[2022-12-12] MEDS ORDERED: MORPHINE SULFATE 4 MG/ML SYRINGE IV STA (15:45)
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
[2022-12-12 16:12] LABS: Basophils % (A) 0 %; Eosinophils # (A) 0.1 k/uL (0-0.7); Eosinophils % (A) 2 %; HCT 47.9 % (39.0-53.0); HGB 16.4 gm/dL (13.0-17.5); Lymphocytes # (A) 1.7 k/uL (1.0-4.8); Lymphocytes % (A) 25 %; MCH 30.8 pg (25.0-35.0); MCHC 34.2 g/dL (31.0-37.0); MCV 90.3 fL (80.0-100.0); Mean Platelet Volume 8.7; Monocytes # (A) 0.4 k/uL (0-1.0); Monocytes % (A) 6 %; Neutrophils # (A) 4.5 k/uL (1.3-7.7); Neutrophils % (A) 66 %; Platelet Count 208 k/uL (150-450); RBC 5.31 m/uL (4.30-5.90); RDW 12.8 % (11.5-15.5); WBC 6.9 k/uL (3.8-10.6)
[2022-12-12 16:54] LABS: ALT 17 U/L (4-49); AST 27 U/L (17-59); African American GFR (CKD) >90 (>60 ml/min/1.73 sqM); Albumin 3.8 g/dL (3.5-5.0); Alkaline Phosphatase 73 U/L (38-126); Anion Gap 9 mmol/L; Blood Urea Nitrogen 15 mg/dL (9-20); Calcium 8.8 mg/dL (8.4-10.2); Carbon Dioxide 22 mmol/L (22-30); Chloride 107 mmol/L (98-107); Glucose 80 mg/dL (74-99); Non-African American GFR(CKD) 83 (>60 ml/min/1.73 sqM); Potassium 4.3 mmol/L (3.5-5.1); Sodium 138 mmol/L (137-145); Total Bilirubin 0.8 mg/dL (0.2-1.3); Total Protein 6.5 g/dL (6.3-8.2)
[2022-12-12 16:57] LABS: INR 1.1 (<1.2); Partial Thromboplastin Time 26.2 sec (22.0-30.0); Prothrombin Time 11.4 sec (10.0-12.5)
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
[2022-12-12] MEDS ORDERED: ACET/COD 300 MG/30 MG STARTER PACK 6 TAB BTL PO STA (18:00)
[2022-12-12 18:50] VITALS: BP 131/89; PULSE 67; TEMP 98
== END 2022-12-12 18:37 | disposition home or self-care (01) ==
LOC: EC 15:03
DX: S39.012A Strain of muscle, fascia and tendon of lower back, initial encounter (principal); V89.2XXA Person injured in unspecified motor-vehicle accident, traffic, initial encounter; Y92.411 Interstate highway as the place of occurrence of the external cause
CPT/HCPCS: 36415; 80053; 85025; 85610; 85730; 72125; 70450; 71260; 74177; 99284; 96374; 96361 ×2; J2270; Q9967

== ENCOUNTER 2024-03-09 09:58 | Inpatient (IN) | payer OTHER, MEDICARE ==
--- NOTE | 2024-03-09 10:21 | ED ---
General Adult HPI - General Chief complaint: Neuro Symptoms/Deficit Stated complaint: JW,R sided numbness Time Seen by Provider: 03/09/24 10:12 Source: patient Mode of arrival: ambulatory Limitations: no limitations - History of Present Illness Initial comments: Dictation was produced using [employer] dictation software. please excuse any grammatical, word or spelling errors. Chief Complaint: 68-year-old male presents with multiple complaints History of Present Illness: Patient 68-year-old male he was at [facility] for chest pain shortness of breath. States that he has substernal chest pressure. While he was at the [facility] around 20 minutes ago he started to have symptoms of right upper extremity right lower extremity numbness and paresthesias. Patient denies any history of stroke. History of present illness limited due to patient being hard of hearing. Denies any cough. The ROS documented in this emergency department record has been reviewed and confirmed by me. Those systems with pertinent positive or negative responses have been documented in the HPI. All other systems are other negative and/or noncontributory. - Related Data Home Medications Medication Instructions Recorded Confirmed No Known Home Medications 03/09/24 03/09/24 Allergies Allergy/AdvReac Type Severity Reaction Status Date / Time No Known Allergies Allergy Verified 03/09/24 10:52 Review of Systems ROS Statement: Those systems with pertinent positive or pertinent negative responses have been documented in the HPI. ROS Other: All systems not noted in ROS Statement are negative. Past Medical History Past Medical History: No Reported History Additional Past Medical History / Comment(s): [place]- deaf on lt History of Any Multi-Drug Resistant Organisms: None Reported Past Surgical History: Back Surgery, Ear Surgery Additional Past Surgical History / Comment(s): L ear surgery - equilibrium duct cut - gets dizzy easily Past Psychological History: No Psychological Hx Reported Smoking Status: Never smoker Past Alcohol Use History: None Reported Past Drug Use History: None Reported General Exam - General Exam Comments Initial Comments: PHYSICAL EXAM: General Impression: Alert and oriented x3, acute distress secondary to pain HEENT: Normocephalic atraumatic, extra-ocular movements intact, pupils equal and reactive to light bilaterally, mucous membranes moist. Cardiovascular: Heart regular rate and rhythm Chest: Able to complete full sentences, no retractions, no tachypnea Abdomen: abdomen soft, non-tender, non-distended, no organomegaly Musculoskeletal: Pulses present and equal in all extremities, no peripheral edema Motor: no focal deficits noted Neurological: CN II-XII grossly intact, no focal motor or sensory deficits noted Skin: Intact with no visualized rashes Psych: Normal affect and mood Limitations: no limitations Course Vital Signs 03/09/24 03/09/24 03/09/24 10:06 10:33 10:55 Temperature 97.8 F 98 F Pulse Rate 68 84 79 Respiratory 24 24 20 Rate Blood Pressure 147/91 141/101 138/93 O2 Sat by Pulse 96 100 99 Oximetry 03/09/24 11:08 Temperature Pulse Rate 76 Respiratory 18 Rate Blood Pressure 136/94 O2 Sat by Pulse 98 Oximetry - Reevaluation(s) Reevaluation #1: 03/09/24 11:02 Case discussed with stroke neurologist Dr. Mora after code stroke paged. states that patient is a candidate for thrombolytics if he has no bleed and no arterial dissection. Images were reviewed along with radiologist showing no bleed and no dissection. Patient consented for thrombolytics. He wa s told that he is within the time window for thrombolytic administration. States that if he does not get thrombolytics he could have permanent disability however he does get thrombolytics there is 3% chance of life-threatening intracranial bleed. Patient would like to receive thrombolytics. Reevaluation #2: 03/09/24 11:17 Thrombolytic administration delayed secondary to complex case involving contacting guardian for consent along with ruling out aortic dissection given that patient having chest and neck pain EKG Findings - EKG Comments: EKG Findings:: My EKG interpretation: Ventricular rate 70, sinus rhythm,. 175, QRS 80, QTc 4 5. No AL prolongation, no QTC prolongation, no ST or T-wave changes noted. Overall, this EKG is unremarkable Medical Decision Making - Medical Decision Making Was pt. sent in by a medical professional or institution (, PA, TEST AND TURN UP TECHNICIAN, urgent care, hospital, or residential...) When possible be specific @ -No Did you speak to anyone other than the patient for history (EMS, parent, family, police, friend...)? What history was obtained from this source @ -No Did you review nursing and triage notes (agree or disagree)? Why? @ -I reviewed and agree with nursing and triage notes Were old charts reviewed (outside hosp., previous admission, EMS record, old EKG, old radiological studies, urgent care reports/EKG's, residential records)? Report findings @ -No old charts were reviewed Differential Diagnosis (chest pain, altered mental status, abdominal pain women, abdominal pain men, vaginal bleeding, musculoskeletal, weakness, fever, dyspnea, syncope, headache, dizziness, GI bleed, back pain, seizure, CVA, palpatations, mental health)? @ - Differential CVA: Ischemic stroke, hemorrhagic stroke, brain tumor, atypical migraine, Wernicke's encephalopathy, seizure, multiple sclerosis, meningitis, encephalitis, hypoglycemia, Guillain-Rivers, electrolytes disturbance, myasthenia gravis.... This is not meant to be an all-inclusive list EKG interpreted by me (3pts min.). @ -See above X-rays interpreted by me (1pt min.). @ -None done CT interpreted by me (1pt min.). @ -Thoracic aorta CT shows no dissection. There appears to be stable 4.[address] angiography head and neck shows no large vessel occlusion. CT brain shows no bleed U/S interpreted by me (1pt. min.). @ -None done What testing was considered but not performed or refused? (CT, X-rays, U/S, labs)? Why? @ -None What meds were considered but not given or refused? Why? @ -None Was smoking cessation discussed for >3mins.? @ -No Were there social determinants of health that impacted care today? How? (Homelessness, low income, unemployed, alcoholism, drug addiction, transportation, low edu. Level, literacy, decrease access to med. care, [facility], rehab)? @ -No Was there de-escalation of care discussed even if they declined (Discuss DNR or withdrawal of care, Hospice)? DNR status @ -No What co-morbidities impacted this encounter? (DM, HTN, Smoking, COPD, CAD, Cancer, CVA, ARF, Chemo, Hep., AIDS, mental health diagnosis, sleep apnea, morbid obesity)? @ -None Was patient admitted / discharged? Hospital course, mention meds given and route, prescriptions, significant lab abnormalities, going to OR and other pertinent info. @ -68-year-old male initially presented to primary care physician's office for chest pain. immediately started having strokelike symptoms onset involving the right upper extremity and right lower extremity. NIH score of 6 initially. While in the emergency department started to have waxing and waning symptoms.. Patient seen and evaluated the bedside code stroke paged. Vital signs stable. Patient does not have any contraindication to thrombolytic administration. CT imaging shows no bleed. No dissection seen to explain patient's chest pain. Patient given thrombolytics. Symptoms improved. Patient will be admitted to the ICU for further care. Neurology and pulmonology consulted. Case discussed with hospitalist for admission Did you discuss the management of the patient with other professionals (professionals i.e. , PA, TEST AND TURN UP TECHNICIAN, lab, RT, psych nurse, perinatal social worker, administration vice president, teacher, president and chief commercial officer, outsole caser)? Give summary @ -See above Was critical care preformed (if so, how long)? @ -Yes, 77 minutes Undiagnosed new problem with uncertain prognosis? @ -No Drug Therapy requiring intensive monitoring for toxicity (Heparin, Nitro, Insulin, Cardizem)? @ -No Were any procedures done? @ -No Diagnosis/symptom? Acute, or Chronic, or Acute on Chronic? Uncomplicated (without systemic symptoms) or Complicated (systemic symptoms)? @ -CVA Side effects of treatment? @ -No Exacerbation, Progression, or Severe Exacerbation? @ -No Poses a threat to life or bodily function? How? (Chest pain, [place], [place], pneumonia, PE, COPD, DKA, ARF, appy, cholecystitis, CVA, Diverticulitis, Homicidal, Suicidal, threat to staff... and all critical care pts) @ -yes - Lab Data Result diagrams: 03/09/24 10:26 03/09/24 10:26 Lab Results 03/09/24 03/09/24 03/09/24 Range/Units 10:26 10: 10:26 WBC 8.2 (3.8-10.6) k/uL RBC 5.40 (4.30-5.90) m/uL Hgb 16.3 (13.0-17.5) gm/dL Hct 48.8 (39.0-53.0) % MCV 90.4 (80.0-100.0) fL MCH 30.3 (25.0-35.0) pg MCHC 33.5 (31.0-37.0) g/dL RDW 12.6 (11.5-15.5) % Plt Count 239 (150-450) k/uL MPV 8.3 Neutrophils % 64 % Lymphocytes % 28 % Monocytes % 6 % Eosinophils % 1 % Basophils % 0 % Neutrophils # 5.2 (1.3-7.7) k/uL Lymphocytes # 2.3 (1.0-4.8) k/uL Monocytes # 0.5 (0-1.0) k/uL Eosinophils # 0.1 (0-0.7) k/uL Basophils # 0.0 (0-0.2) k/uL PT 10.8 (10.0-12.5) sec INR 1.0 (<1.2) APTT 24.7 (22.0-30.0) sec D-Dimer 0.68 H (<0.60) mg/L FEU Sodium 139 (137-145) mmol/L Potassium 4.5 (3.5-5.1) mmol/L Chloride 107 (98-107) mmol/L Carbon Dioxide 22 (22-30) mmol/L Anion Gap 10 mmol/L BUN 24 H (9-20) mg/dL Creatinine 1.05 (0.66-1.25) mg/dL Est GFR (CKD-EPI)AfAm 84 (>60 ml/min/1.73 sqM) Est GFR (CKD-EPI)NonAf 73 (>60 ml/min/1.73 sqM) Glucose 91 (74-99) mg/dL Calcium 9.5 (8.4-10.2) mg/dL Total Bilirubin 0.8 (0.2-1.3) mg/dL AST 28 (17-59) U/L ALT 21 (4-49) U/L Alkaline Phosphatase 81 (38-126) U/L Creatine Kinase 124 (55-170) U/L Troponin I (0.000-0.034) ng/mL NT-Pro-B Natriuret Pep <20 pg/mL Total Protein 7.2 (6.3-8.2) g/dL Albumin 4.2 (3.5-5.0) g/dL Influenza Type A (PCR) (Not Detectd) Influenza Type B (PCR) (Not Detectd) RSV (PCR) (Not Detectd) SARS-CoV-2 (PCR) (Not Detectd) 03/09/24 03/09/24 Range/Units 10:26 10:56 WBC (3.8-10.6) k/uL RBC (4.30-5.90) m/uL Hgb (13.0-17.5) gm/dL Hct (39.0-53.0) % MCV (80.0-100.0) fL MCH (25.0-35.0) pg MCHC (31.0-37.0) g/dL RDW (11.5-15.5) % Plt Count (150-450) k/uL MPV Neutrophils % % Lymphocytes % % Monocytes % % Eosinophils % % Basophils % % Neutrophils # (1.3-7.7) k/uL Lymphocytes # (1.0-4.8) k/uL Monocytes # (0-1.0) k/uL Eosinophils # (0-0.7) k/uL Basophils # (0-0.2) k/uL PT (10.0-12.5) sec INR (<1.2) APTT (22.0-30.0) sec D-Dimer (<0.60) mg/L FEU Sodium (137-145) mmol/L Potassium (3.5-5.1) mmol/L Chloride (98-107) mmol/L Carbon Dioxide (22-30) mmol/L Anion Gap mmol/L BUN (9-20) mg/dL Creatinine (0.66-1.25) mg/dL Est GFR (CKD-EPI)AfAm (>60 ml/min/1.73 sqM) Est GFR (CKD-EPI)NonAf (>60 ml/min/1.73 sqM) Glucose (74-99) mg/dL Calcium (8.4-10.2) mg/dL Total Bilirubin (0.2-1.3) mg/dL AST (17-59) U/L ALT (4-49) U/L Alkaline Phosphatase (38-126) U/L Creatine Kinase (55-170) U/L Troponin I <0.012 (0.000-0.034) ng/mL NT-Pro-B Natriuret Pep pg/mL Total Protein (6.3-8.2) g/dL Albumin (3.5-5.0) g/dL Influenza Type A (PCR) Not Detected (Not Detectd) Influenza Type B (PCR) Not Detected (Not Detectd) RSV (PCR) Not Detected (Not Detectd) SARS-CoV-2 (PCR) Not Detected (Not Detectd) Disposition Clinical Impression: Cerebrovascular accident (CVA) Disposition: ADMITTED IP TO THIS [facility] Condition: Critical Referrals: [facility],Clinic [Primary Care Provider] - 1-2 days Decision Time: 11:44
[2024-03-09 10:42] LABS: Basophils % (A) 0 %; Eosinophils # (A) 0.1 k/uL (0-0.7); Eosinophils % (A) 1 %; HCT 48.8 % (39.0-53.0); HGB 16.3 gm/dL (13.0-17.5); Lymphocytes # (A) 2.3 k/uL (1.0-4.8); Lymphocytes % (A) 28 %; MCH 30.3 pg (25.0-35.0); MCHC 33.5 g/dL (31.0-37.0); MCV 90.4 fL (80.0-100.0); Mean Platelet Volume 8.3; Monocytes # (A) 0.5 k/uL (0-1.0); Monocytes % (A) 6 %; Neutrophils # (A) 5.2 k/uL (1.3-7.7); Neutrophils % (A) 64 %; Platelet Count 239 k/uL (150-450); RDW 12.6 % (11.5-15.5); WBC 8.2 k/uL (3.8-10.6)
[2024-03-09 10:56] LABS: Partial Thromboplastin Time 24.7 sec (22.0-30.0); Prothrombin Time 10.8 sec (10.0-12.5)
[2024-03-09 10:58] LABS: ALT 21 U/L (4-49); AST 28 U/L (17-59); African American GFR (CKD) 84 (>60 ml/min/1.73 sqM); Albumin 4.2 g/dL (3.5-5.0); Alkaline Phosphatase 81 U/L (38-126); Anion Gap 10 mmol/L; Blood Urea Nitrogen 24 mg/dL (9-20); Calcium 9.5 mg/dL (8.4-10.2); Carbon Dioxide 22 mmol/L (22-30); Chloride 107 mmol/L (98-107); Creatine Kinase 124 U/L (55-170); Glucose 91 mg/dL (74-99); Non-African American GFR(CKD) 73 (>60 ml/min/1.73 sqM); Potassium 4.5 mmol/L (3.5-5.1); Sodium 139 mmol/L (137-145); Total Bilirubin 0.8 mg/dL (0.2-1.3); Total Protein 7.2 g/dL (6.3-8.2)
[2024-03-09] MEDS: SODIUM CHLORIDE 0.9% 1,000 ML IV STA (10:58)
[2024-03-09] MEDS: T.ENECTEPLASE 5 MG/ML VIAL IVP STA (11:00)
[2024-03-09 11:06] LABS: NT-Pro-B-Type Natriuretic Pept <20 pg/mL
--- NOTE | 2024-03-09 11:06 | CT ---
EXAMINATION TYPE: CODE STROKE: CT brain wo contr DATE OF EXAM: 03/09/2024 HISTORY: Rt sided numbness CT DLP: 1085 mGycm. Automated Exposure Control for Dose Reduction was Utilized. TECHNIQUE: CT scan of the head is performed without contrast. COMPARISON: CT brain December 12, 2022. FINDINGS: There is no acute intracranial hemorrhage or midline shift identified. There is mild diff use ventricular and sulcal prominence redemonstrated. Jones-white matter differentiation is maintained . Left mastoid surgical change is redemonstrated. The globes are intact and the visualized sinuses a re clear. IMPRESSION: No acute intracranial hemorrhage or midline shift. No significant change from most recen t prior CT. If clinical concern for acute stroke persist further investigation with MRI study may BE warranted. [facility], , 03/09/2024 11:04 AM
--- NOTE | 2024-03-09 11:11 | CT ---
EXAMINATION TYPE: CT angio head neck DATE OF EXAM: 03/09/2024 COMPARISON: None. CLINICAL INDICATION: Male, 68 years old with history of Neuro deficit, acute, stroke suspected; PHH, rt arm numbness/ severe chest pain TECHNIQUE: CTA scan of the head and neck is performed with IV Contrast, patient injected with 65ml m L of Isovue 370, axial images are obtained, coronal and sagittal reformatted images are reviewed. 3D reconstructed images are created on an independent workstation and reviewed. CT DLP: combined 1506.9 mGycm Automated exposure control for dose reduction was used. NASCET criteria was used in interpretation of this exam? FINDINGS: Right Carotid System: The common carotid artery and external carotid artery are patent. The carotid bifurcation demonstrate s no evidence of hemodynamically significant stenosis. The remaining portions of the internal carotid artery demonstrate normal size without significant narrowing. Left Carotid System: The common carotid artery and external carotid artery are patent. The carotid bifurcation demonstrate s no evidence of hemodynamically significant stenosis. The remaining portions of the internal carotid artery demonstrate normal size without significant narrowing. Vertebral arteries are patent without evidence hemodynamically significant stenosis. Codominant verte bral arteries are seen. Patent bilateral posterior communicating arteries and patent but poorly visualized anterior communica ting artery. No aneurysm is seen. There is a three-vessel aortic arch. The origins of the great vessels are patent. No evidence of hemo dynamically significant stenosis. Other: None IMPRESSION: 1. No evidence of significant stenosis at the carotid bifurcations. No large vessel occlusion or an eurysm at the level of the [place]. [facility], , 03/09/2024 11:09 AM
--- NOTE | 2024-03-09 11:21 | CT ---
EXAMINATION TYPE: CT angio thor/abd pel aorta DATE OF EXAM: 03/09/2024 COMPARISON: Prior whole-body CT December 12, 2022 HISTORY: rt arm numbness/ severe chest pain. Strokelike symptoms. CT DLP: 1603.1 mGycm. Automated Exposure Control for Dose Reduction was Utilized. CONTRAST: CTA scan of the thorax, abdomen and pelvis is performed without and with IV Contrast, patient injecte d with 1ooml mL of Isovue 370. Three-D reconstructed images workstation and reviewed. FINDINGS: Vascular: Noncontrast images show no suspicious hyperdense material to suggest intramural hematoma. S atisfactory enhancement of the central pulmonary arteries. Persistent ascending aortic aneurysm up to 4.2 cm at the level of the main pulmonary artery not significantly changed from prior. Normal 3 vess el origins from the aortic arch without significant plaque or stenosis. No aneurysm extension into th e descending aorta. Common origin of the celiac artery and SMA from the abdominal aorta is redemonstr ated without significant stenosis, normal variant. Patent bilateral single renal arteries without sig nificant stenosis. Patent iliac and femoral artery branches without significant stenosis. No linear h ypodensity to suggest dissection. Patent STEPHANE. LUNGS: The lungs are grossly clear, there is no concerning parenchymal mass or focal consolidation id entified. There is no pleural effusion or pneumothorax seen. The tracheobronchial tree is patent. MEDIASTINUM: There are no greater than 1 cm hilar or mediastinal lymph nodes. No cardiomegaly or pe ricardial effusion is seen. Coronary artery calcification redemonstrated. LIVER/GB: There is 1.4 cm simple appearing thin-walled cyst in the left hepatic dome axial image 133. There is subcentimeter simple cyst right hepatic lobe image 160 PANCREAS: No significant abnormality is seen. SPLEEN: No significant abnormality is seen. ADRENALS: No significant abnormality is seen. KIDNEYS: No significant abnormality is seen. BOWEL: Distal colonic diverticulosis is redemonstrated. No CT evidence for acute diverticulitis.. GENITAL ORGANS: No gross abnormality seen. LYMPH NODES: No greater than 1cm abdominal or pelvic lymph nodes are appreciated. OSSEOUS STRUCTURES: No significant abnormality is seen. OTHER: Stable large fat-containing left inguinal hernia. IMPRESSION: Stable ascending aortic aneurysm up to 4.2 cm. No aortic dissection. No acute finding harriet ntified to account for patient's symptoms. [facility], , 03/09/2024 11:18 AM
[2024-03-09 11:37] LABS: Influenza A Not Detected (Not Detectd); Influenza B Not Detected (Not Detectd); RSV Not Detected (Not Detectd)
--- NOTE | 2024-03-09 12:59 | P.CNPUL ---
History of Present Illness Consult date: 03/09/24 Requesting physician: Cuco Barrios Reason for consult: other Chief complaint: Numbness right side of his body, weakness right side. History of present illness: Pulmonary consult dated March 09, 2024. 68-year-old male seen in the emergency department. Patient came into the emergency department, with some numbness on the right side of his body, as well as inability to move his right arm and right leg. The patient is seen in room #6. He was evaluated, CT scan of the brain was negative for anything acute. His initial NIH stroke score was 12. He received tenecteplase at 1018 in the morning. We were asked to see him because he will need to come to the intensive care unit for further monitoring and management. The patient follows up with a physician at the [facility], in [place], and apparently has no major medical problems. He is a lifelong non-smoker. He does not drink any alcohol. He does not take any medications at home. He is feeling much better now. Current labs include a white count 8.2, hemoglobin 16.3, hematocrit 48.8, platelet count finger 39,000. D-dimer was 0.68. Sodium 139, potassium 4.5, chlorides 107, CO2 22, BUN 24, creatinine 1.05. The rest of the CMP was normal. Viral studies were negative. EKG showed normal sinus rhythm. Brain CT showed no acute intracranial hemorrhage or midline shift. Angiography CT, showed no significant stenosis. CT scan of the chest showed a stable ascending aortic aneurysm measuring 4.2 cm. Review of Systems REVIEW OF SYSTEMS: CONSTITUTIONAL: [Negative.] NEUROLOGIC: Weakness, right upper extremity right lower extremity, and numbness on the right side. HEENT: [ Negative.] CARDIAC: [Negative.] PULMONARY: [Negative.] GI: [Negative.] : [Negative.] RHEUMATOLOGIC: [ Negative.] IMMUNOLOGIC: [ Negative.] ENDOCRINE: [Negative. ] DERMATOLOGIC: [Negative.] Past Medical History Past Medical History: No Reported History Additional Past Medical History / Comment(s): [place]- deaf on lt History of Any Multi-Drug Resistant Organisms: None Reported Past Surgical History: Back Surgery, Ear Surgery Additional Past Surgical History / Comment(s): L ear surgery - equilibrium duct cut - gets dizzy easily Past Psychological History: No Psychological Hx Reported Smoking Status: Never smoker Past Alcohol Use History: None Reported Past Drug Use History: None Reported Medications and Allergies Home Medications Medication Instructions Recorded Confirmed Type No Known Home Medications 03/09/24 03/09/24 History Allergies Allergy/AdvReac Type Severity Reaction Status Date / Time No Known Allergies Allergy Verified 03/09/24 10:52 Physical Exam Osteopathic Statement: *. No significant issues noted on an osteopathic stru ctural exam other than those noted in the History and Physical/Consult. Vitals: Vital Signs Temp Pulse Resp BP Pulse Ox 03/09/24 11:08 76 18 136/94 98 03/09/24 10:55 79 20 138/93 99 03/09/24 10:33 98 F 84 24 141/101 100 03/09/24 10:06 97.8 F 68 24 147/91 96 Intake and Output 03/08/24 03/09/24 03/09/24 22:59 06:59 14:59 Other: Weight 77.111 kg No acute distress, oriented 3. HEENT examination is grossly unremarkable. Mucous membranes are moist. No oral lesions. Neck supple. Full range of motion. No adenopathy thyromegaly or neck vein distention. Cardiovascular examination reveals regular rhythm rate. S1-S2 normal. No S3 or S4. No discernible murmur noted. Lungs reveal clear breath sounds. Breath sounds are equal bilaterally. No adventitious lung sounds including wheezes rhonchi or crackles. Abdomen soft bowel sounds are heard. No masses or tenderness. Extremities are intact. No cyanosis clubbing or edema. Skin is without rash or lesion. Neurologic examination is brief but nonfocal. 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 History of no major medical problems. Plan: Plan dated March 09, 2024. The patient is seen in the emergency department, room #6. The patient came into the emergency room, complaining of numbness to the right side of his body, as well as weakness of the right upper extremity and right lower extremity. He had a CT scan of the brain that was negative. Nothing acute. He received TNK at 1018 in the morning. His symptoms have resolved. His initial NIH score was 12. He is currently on room air. He is getting saline at [facility]. He has no major medical problems. He takes no medications at home. He is a lifelong non- smoker. He does not drink. Labs, x-rays, and all medications have been reviewed. Prognosis is guarded. Time with Patient: Greater than 30
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
[2024-03-10 04:45] LABS: Basophils % (A) 1 %; Eosinophils # (A) 0.1 k/uL (0-0.7); Eosinophils % (A) 2 %; HCT 44.9 % (39.0-53.0); HGB 15.1 gm/dL (13.0-17.5); Lymphocytes # (A) 1.5 k/uL (1.0-4.8); Lymphocytes % (A) 24 %; MCH 30.3 pg (25.0-35.0); MCHC 33.6 g/dL (31.0-37.0); MCV 90.2 fL (80.0-100.0); Mean Platelet Volume 9.1; Monocytes # (A) 0.4 k/uL (0-1.0); Monocytes % (A) 7 %; Neutrophils % (A) 65 %; Platelet Count 197 k/uL (150-450); RBC 4.99 m/uL (4.30-5.90); WBC 6.1 k/uL (3.8-10.6)
[2024-03-10 05:07] LABS: ALT 17 U/L (4-49); AST 28 U/L (17-59); African American GFR (CKD) >90 (>60 ml/min/1.73 sqM); Albumin 3.5 g/dL (3.5-5.0); Alkaline Phosphatase 79 U/L (38-126); Anion Gap 10 mmol/L; Blood Urea Nitrogen 18 mg/dL (9-20); Calcium 8.9 mg/dL (8.4-10.2); Carbon Dioxide 22 mmol/L (22-30); Chloride 107 mmol/L (98-107); Glucose 84 mg/dL (74-99); Non-African American GFR(CKD) 78 (>60 ml/min/1.73 sqM); Sodium 139 mmol/L (137-145); Total Bilirubin 1.2 mg/dL (0.2-1.3); Total Protein 6.2 g/dL (6.3-8.2)
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
[2024-03-10 09:55] VITALS: TEMP 97.4
[2024-03-10 10:22] LABS: Chol/HDL Ratio 5.43 Ratio; LDL Cholesterol,Calculated 128.9 mg/dL (0.0-131.0)
--- NOTE | 2024-03-10 10:30 | P.PN ---
Subjective Progress Note Date: 03/10/24 Principal diagnosis: CVA. Pulmonary consult dated March 09, 2024. 68-year-old male seen in the emergency department. Patient came into the emergency department, with some numbness on the right side of his body, as well as inability to move his right arm and right leg. The patient is seen in room #6. He was evaluated, CT scan of the brain was negative for anything acute. His initial NIH stroke score was 12. He received tenecteplase at 1018 in the morning. We were asked to see him because he will need to come to the intensive care unit for further monitoring and management. The patient follows up with a physician at the [facility], in [place], and apparently has no major medical problems. He is a lifelong non-smoker. He does not drink any alcohol. He does not take any medications at home. He is feeling much better now. Current labs include a white count 8.2, hemoglobin 16.3, hematocrit 48.8, platelet count finger 39,000. D-dimer was 0.68. Sodium 139, potassium 4.5, chlorides 107, CO2 22, BUN 24, creatinine 1.05. The rest of the CMP was normal. Viral studies were negative. EKG showed normal sinus rhythm. Brain CT showed no acute intracranial hemorrhage or midline shift. Angiography CT, showed no significant stenosis. CT scan of the chest showed a stable ascending aortic aneurysm measuring 4.2 cm. Progress note dated March 10, 2024. 68-year-old male seen in the emergency department yesterday. Please see my note above. The patient came in with weakness on the right side of his body, including the right arm and right leg, as well as numbness and tingling. The patient was evaluated for stroke. CT scan of the brain was negative. Angiograp hy CT was also negative for any significant obstruction. The patient did receive tenecteplase at 1018 in the morning. Currently, he is seen in the ICU, room 257. He is on room air. Is not receiving any IV fluids. All of his neurologic complaints have resolved. White count 6.1, hemoglobin 15.1, hematocrit 44.9, platelet count normal. Sodium 139, potassium 4, chlorides 107, CO2 22, BUN 18, creatinine 0.99. The rest of his labs all look within normal range. Viral screen was negative. The patient is scheduled to have a follow-up CT scan this morning. Objective - Vital Signs Vital signs: Vital Signs Temp 97.4 F L 03/10/24 08:00 Pulse 74 03/10/24 10:00 Resp 12 03/10/24 10:00 BP 131/95 03/10/24 10:00 Pulse Ox 95 03/10/24 10:00 FiO2 Intake & Output 03/09/24 03/10/24 03/10/24 18:59 06:59 18:59 Intake Total 490 240 Output Total 0 0 Balance 490 240 Weight 77.111 kg 72.8 kg Intake: Oral 490 240 Output: Urine 0 0 Other: Voiding Method Toilet Toilet Toilet # Voids 1 0 1 - Exam No acute distress, oriented 3. HEENT examination is grossly unremarkable. Mucous membranes are moist. No oral lesions. Neck supple. Full range of motion. No adenopathy thyromegaly or neck vein distention. Cardiovascular examination reveals regular rhythm rate. S1-S2 normal. No S3 or S4. No discernible murmur noted. Lungs reveal clear breath sounds. Breath sounds are equal bilaterally. No adventitious lung sounds including wheezes rhonchi or crackles. Abdomen soft bowel sounds are heard. No masses or tenderness. Extremities are intact. No cyanosis clubbing or edema. Skin is without rash or lesion. Neurologic examination is brief but nonfocal. 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 History of no major medical problems. Plan: Plan dated March 09, 2024. The patient is seen in the emergency department, room #6. The patient came into the emergency room, complaining of numbness to the right side of his body, as well as weakness of the right upper extremity and right lower extremity. He had a CT scan of the brain that was negative. Nothing acute. He received TNK at 1018 in the morning. His symptoms have resolved. His initial NIH score was 12. He is currently on room air. He is getting saline at [facility]. He has no major medical problems. He takes no medications at home. He is a lifelong non-smok er. He does not drink. Labs, x-rays, and all medications have been reviewed. Prognosis is guarded. Plan dated March 10, 2024. 68-year-old male without significant past medical history, who was seen yesterday in the emergency department, in room 6. The patient presented with complaints of right arm weakness and right leg weakness, as well as numbness, and tingling of the right upper extremity and right lower extremity. The patient had initial NIH score of 12, had a negative CT of the brain, and also had a negative angiography CT. The decision was made to give him tenecteplase, which she got at 10:18 AM. When we saw him in the emergency department, he was already starting to feel better. He had an uneventful night according to the nurse. He is seen in the intensive care unit, room 257. All labs, x-rays, medications are reviewed. Neurologic symptoms have resolved. I repeat CT scan is scheduled for this morning. Time with Patient: Less than 30
--- NOTE | 2024-03-10 11:05 | CT ---
EXAMINATION TYPE: CT brain wo con DATE OF EXAM: 03/10/2024 COMPARISON: 03/09/2024 CLINICAL INDICATION: Male, 68 years old with history of Neuro deficit, acute, stroke suspected; PHH, AMS POST TPA CT DLP: 1008 mGycm Automated exposure control for dose reduction was used. Findings: The ventricles, basal cisterns and sulci over the convexities are within normal limits and there is n o mass effect or shift of midline structures. No abnormal density is seen throughout the brain parenchyma and there is no acute intra or extra-axia l hemorrhage. The posterior fossa including the brainstem, fourth ventricle and cerebellar pontine angles appear no rmal. Intraorbital contents appear normal and symmetric. Visualized paranasal sinuses and mastoid air cells are well aerated. The calvarium is intact. IMPRESSION: No significant abnormality seen. There is no acute bleed or mass effect. [facility], , 03/10/2024 11:03 AM
--- NOTE | 2024-03-10 11:25 | CA ---
Transthoracic Echo Report Name: Leander Underwood Age: 68 Gender: M : 1955 Exam Date: 03/10/2024 08:40 Exam Location: [facility] Ht (in): 57 Wt (lb): 170 Ordering Physician: Zhanna Fitch MD Attending/Referring Phys: Malted Milk Masher Margaret Mendoza RDCS Procedure CPT: Indications: Slurred speech, CVA Cardiac Hx: Technical Quality: Fair Contrast 1: Agitated Saline Total Dose (mL): Contrast 2: Total Dose (mL): MEASUREMENTS (Male / Female) Normal Values 2D ECHO LV Diastolic Diameter PLAX 4.4 cm 4.2 - 5.9 / 3.9 - 5.3 cm LV Systolic Diameter PLAX 3.0 cm IVS Diastolic Thickness 1.1 cm 0.6 - 1.0 / 0.6 - 0.9 cm LVPW Diastolic Thickness 1.1 cm 0.6 - 1.0 / 0.6 - 0.9 cm LV Relative Wall Thickness 0.5 RV Internal Dim ED PLAX 3.3 cm LA Volume 52.2 cm??? 18 - 58 / 22 - 52 cm??? LA Volume Index 28.9 cm???/m??? 16 - 28 cm???/m??? M-MODE Aortic Root Diameter MM 3.8 cm LA Systolic Diameter MM 3.6 cm LA Ao Ratio MM 0.9 AV Cusp Separation MM 1.7 cm DOPPLER AI Peak Velocity 405.2 cm/s AI Peak Gradient 65.7 mmHg AI Pressure Half Time 758.1 ms MV Area PHT 2.5 cm??? Mitral E Point Velocity 44.9 cm/s Mitral A Point Velocity 82.5 cm/s Mitral E to A Ratio 0.5 MV Deceleration Time 308.8 ms TR Peak Velocity 169.1 cm/s TR Peak Gradient 11.4 mmHg FINDINGS Left Ventricle Left ventricular ejection fraction is estimated at 55-60 %. Mildly increased septal wall thickness. Normal left ventricular systolic function with no obvious regional wall motion abnormalities. Left ventricular cavity size normal. Right Ventricle Normal right ventricular size and function. Right ventricular systolic pressure within normal limits. Right Atrium Normal right atrial size. Negative agitated saline bubble study for right to left shunt. Left Atrium Mild left atrial dilatation. Mitral Valve Structurally normal mitral valve. Trace mitral regurgitation. No mitral stenosis. Aortic Valve Trileaflet aortic valve. Mild aortic regurgitation. No aortic stenosis. Tricuspid Valve Structurally normal tricuspid valve. Trace tricuspid regurgitation. No tricuspid stenosis. Pulmonic Valve Structurally normal pulmonic valve. Trace pulmonic regurgitation. No pulmonic stenosis. Pericardium No pericardial or pleural effusion. Aorta Mild aortic dilatation at the level of the sinuses of [place] (root). CONCLUSIONS Normal LV function Negative bubble study Mild left atrial enlargement Mild aortic regurgitation Previewed by: Dr. Anmol Jiménez MD (Electronically Signed) Final Date: 10 March 2024 11:24
--- NOTE | 2024-03-10 11:39 | MR ---
MRI brain without contrast. HISTORY: CVA COMPARISON: None. TECHNIQUE: Multiecho multiplanar images the brain were obtained without contrast. FINDINGS: On the T1-weighted sagittal images, the midline structures including the craniovertebral junction rel ationships are normal. The ventricles, basal cisterns and sulci over the convexities are within normal limits and there is n o mass effect or shift of the midline structures. There are few scattered foci of abnormal increased signal intensity in the white matter of both cereb ral hemispheres consistent with chronic ischemic white matter change. Based on the diffusion-weighted images, there is no diffusion restriction or acute ischemic event. The posterior fossa including the brainstem, fourth ventricle and cerebellar pontine angles appear no rmal. The intraorbital contents appear normal and symmetric. There is moderate chronic inflammatory change in the right maxillary sinus. There has been a left mastoidectomy. IMPRESSION: 1. Mild focal chronic ischemic white matter change. 2. Left mastoidectomy. 3. Moderate chronic laboratory change in the right maxillary sinus. 4. No mass effect or shift of midline structures. 5. No acute ischemic event. [facility], , 03/10/2024 11:37 AM
[2024-03-10 13:26] VITALS: PULSE 68
[2024-03-10] MEDS: ASPIRIN 81 MG PO STA (13:33)
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
[2024-03-10 16:24] VITALS: BP 122/85; RESP 18
--- NOTE | 2024-03-10 21:30 | CONS ---
CONSULTATION HISTORY OF PRESENT ILLNESS: Mr. Underwood is a 68-year-old gentleman who presented to hospital as acute CVA and received thrombolytics and is doing well this morning. I have been consulted because of chest discomfort. The patient complains of chest pain that is right-sided, mild intensity, that has been going on for a long time. CT scan of the chest on this admission revealed ascending aortic aneurysm measuring 4.2 cm. His lipid profile showed that the LDL cholesterol is 128. Troponin was negative, as was the BNP. The patient will need evaluation for chest pain as outpatient. I will follow the echocardiogram that he has had. PAST MEDICAL HISTORY: Negative for hypertension, diabetes, dyslipidemia. MEDICATIONS: None. ALLERGIES: None. FAMILY HISTORY: Negative for premature coronary artery disease. SOCIAL HISTORY: Negative for current smoking, EtOH abuse, or drug abuse. REVIEW OF SYSTEMS: HEENT: Unremarkable. CARDIAC: As described above. RESPIRATORY: Negative. GI: Negative. : Negative. ALLERGY/IMMUNOLOGY: Negative. SKIN: Negative. MUSCULOSKELETAL: Negative. ENDOCRINE: Negative. DERMATOLOGIC: Negative. CONSTITUTIONAL: Negative. POLICY LOAN CALCULATOR: As described above. PHYSICAL EXAMINATION: GENERAL: Comfortable at rest. VITAL SIGNS: Stable. CHEST: Reveals good air entry bilaterally. HEART: Reveals first and second heart sounds. No gallop. No murmur. No rub. ABDOMEN: Soft, nontender. EXTREMITIES: Did not reveal any edema. Peripheral pulses are felt. DIAGNOSTIC DATA: EKG shows sinus rhythm, left axis deviation with nonspecific ST-T wave changes. ASSESSMENT AND PLAN: 1. Cerebrovascular accident, status post thrombolytics. Management as per Neurology and kids activities coach. 2. Atypical chest pain. Needs outpatient workup with a stress test when his stroke issues resolve. MMODL / IJN: [id number] /
[2024-03-11] MEDS ORDERED: ASPIRIN 81 MG PO SCH (09:00)
[2024-03-11] MEDS ORDERED: ATORVASTATIN 40 MG TAB PO SCH (09:00)
[2024-03-11] MEDS ORDERED: ATORVASTATIN 80 MG TAB PO SCH (09:00)
== END 2024-03-10 16:24 | disposition home or self-care (01) | DRG 62 ==
LOC: EC 09:58 → 2SICU 11:45
PROVIDERS: ADMIT Student in an Organized Health Care Education/Training Program; ATTEND Student in an Organized Health Care Education/Training Program
DX: G45.9 Transient cerebral ischemic attack, unspecified (principal); G81.91 Hemiplegia, unspecified affecting right dominant side; I71.21 Aneurysm of the ascending aorta, without rupture; J44.9 Chronic obstructive pulmonary disease, unspecified; I08.3 Combined rheumatic disorders of mitral, aortic and tricuspid valves; R47.01 Aphasia; Z11.52 Encounter for screening for COVID-19; F43.10 Post-traumatic stress disorder, unspecified; H91.92 Unspecified hearing loss, left ear; I71.40 Abdominal aortic aneurysm, without rupture, unspecified; Z82.49 Family history of ischemic heart disease and other diseases of the circulatory system; Z86.79 Personal history of other diseases of the circulatory system
CPT/HCPCS: 36415; 70450; 70496; 70498; 70551; 71275; 74174; 80053; 80061; 82550; 83036; 83880; 84443; 84484; 85025; 85379; 85610; 85730; 87636; 93005; 93306; 96361; 96374; 99291

== ENCOUNTER 2024-04-01 23:52 | Emergency (ER) | payer OTHER, MEDICARE ==
[2024-04-02 00:06] VITALS: RESP 18; TEMP 97.6
--- NOTE | 2024-04-02 00:10 | ED ---
GI Bleed HPI - General Chief complaint: GI Bleed Stated complaint: GI Bleed, Reaction to Medication Time Seen by Provider: 04/02/24 00:09 Source: patient, RN notes reviewed, old records reviewed Mode of arrival: ambulatory Limitations: no limitations - History of Present Illness Initial comments: This is a 68-year-old male to the ER for evaluation of bright red blood per rectum 3 times, feelings of near syncope he has also had and as well as once here in the emergency department. No blood thinners patient does have significant abdominal pain and cramping MD complaint: blood on toilet paper, blood streaked stool, gross hematochezia -: hour(s) Quality: cramping, sharp Consistency: intermittent Improves with: none Worsens with: bowel movement Associated Symptoms: abdominal pain, nausea, weakness - Related Data Previous Rx's Medication Instructions Recorded Aspirin 81 mg PO DAILY #90 tab 03/10/24 Atorvastatin [Lipitor] 40 mg PO DAILY #90 tab 03/10/24 Allergies Allergy/AdvReac Type Severity Reaction Status Date / Time No Known Allergies Allergy Verified 03/09/24 10:52 Review of Systems ROS Statement: Those systems with pertinent positive or pertinent negative responses have been documented in the HPI. ROS Other: All systems not noted in ROS Statement are negative. Past Medical History Past Medical History: No Reported History Additional Past Medical History / Comment(s): YOMBA SHOSHONE- deaf on lt History of Any Multi-Drug Resistant Organisms: None Reported Past Surgical History: Back Surgery, Ear Surgery Additional Past Surgical History / Comment(s): L ear surgery - equilibrium duct cut - gets dizzy easily Past Anesthesia/Blood Transfusion Reactions: No Reported Reaction Past Psychological History: No Psychological Hx Reported Smoking Status: Never smoker Past Alcohol Use History: None Reported Past Drug Use History: None Reported - Past Family History Mother Family Medical History: COPD Father Family Medical History: COPD, Coronary Artery Disease (CAD) Additional Family Medical History / Comment(s): CABG General Exam General appearance: alert, in no apparent distress Head exam: Present: atraumatic, normocephalic, normal inspection Eye exam: Present: normal appearance, PERRL, EOMI. Absent: scleral icterus, conjunctival injection, periorbital swelling ENT exam: Present: normal exam, mucous membranes moist Neck exam: Present: normal inspection. Absent: tenderness, meningismus, l ymphadenopathy Respiratory exam: Present: normal lung sounds bilaterally. Absent: respiratory distress, wheezes, rales, rhonchi, stridor Cardiovascular Exam: Present: regular rate, normal rhythm, normal heart sounds. Absent: systolic murmur, diastolic murmur, rubs, gallop, clicks GI/Abdominal exam: Present: soft, normal bowel sounds. Absent: distended, tenderness, guarding, rebound, rigid Extremities exam: Present: normal inspection, full ROM, normal capillary refill. Absent: tenderness, pedal edema, joint swelling, calf tenderness Back exam: Present: normal inspection Neurological exam: Present: alert, oriented X3, CN II-XII intact Psychiatric exam: Present: normal affect, normal mood Skin exam: Present: warm, dry, intact, normal color. Absent: rash Course Vital Signs 04/02/24 04/02/24 04/02/24 00:02 02:13 02:53 Temperature 97.6 F Pulse Rate 66 64 68 Respiratory 18 18 18 Rate Blood Pressure 126/87 114/94 132/94 O2 Sat by Pulse 98 97 Oximetry - Reevaluation(s) Reevaluation #1: 04/02/24 02:50 Medical records reviewed Reevaluation #2: 04/02/24 02:51 Does have a bright red bloody bowel movement here in the ER Reevaluation #3: 04/02/24 02:51 Patient informed of results questions answered Reevaluation #4: Was pt. sent in by a medical professional or institution (, PA, FILM PRODUCER, urgent ca re, hospital, or [facility]...) When possible be specific @ -no Did you speak to anyone other than the patient for history (EMS, parent, family, police, friend...)? What history was obtained from this source @ -no Did you review nursing and triage notes (agree or disagree)? Why? @ -agree Are old charts reviewed (outside hosp., previous admission, EMS record, old EKG, old radiological studies, urgent care reports/EKG's, [facility] records)? Report findings @ -yes Differential Diagnosis (chest pain, altered mental status, abdominal pain women, abdominal pain men, vaginal bleeding, weakness, fever, dyspnea, syncope, headache, dizziness, GI bleed, back pain, seizure, CVA, palpatations, mental health, musculoskeletal)? @ -prior EKG interpreted by me (3pts min.). @ -yes X-rays interpreted by me (1pt min.). @ -yes negative for acute disease CT interpreted by me (1pt min.). @ -no U/S interpreted by me (1pt. min.). @ -no What testing was considered but not performed or refused? (CT, X-rays, U/S, labs)? Why? @ -none What meds were considered but not given or refused? Why? @ -none Did you discuss the management of the patient with other professionals (professionals i.e. , PA, FILM PRODUCER, lab, RT, psych nurse, administrator social welfare, internet retailer, teacher, traffic maintenance officer, case management assistant)? Give summary @ -no Was smoking cessation discussed for >3mins.? @ -no Was critical care preformed (if so, how long)? @ -yes31 Were there social determinants of health that impacted care today? How? (Ho melessness, low income, unemployed, alcoholism, drug addiction, transportation, low edu. Level, literacy, decrease access to med. care, group home, rehab)? @ -none Was there de-escalation of care discussed even if they declined (Discuss DNR or withdrawal of care, Hospice)? DNR status @ -no What co-morbidities impacted this encounter? (DM, HTN, Smoking, COPD, CAD, Cancer, CVA, ARF, Chemo, Hep., AIDS, mental health diagnosis, sleep apnea, morbid obesity)? @ -none Was patient admitted / discharged? Hospital course, mention meds given and route, prescriptions, significant lab abnormalities, going to OR and other pertinent info. @ - 68 male to the ER for evaluation of multiple bright red blood bowel movements here in the ER will transfer to definitive care at [facility] who is GI we do not have GI in this hospital Transfer for inpatient treatment Undiagnosed new problem with uncertain prognosis? @ -no Drug Therapy requiring intensive monitoring for toxicity (Heparin, Nitro, Insulin, Cardizem)? @ -no Were any procedures done? @ -no Diagnosis/symptom? @ - Acute, or Chronic, or Acute on Chronic? @ -Acute Uncomplicated (without systemic symptoms) or Complicated (systemic symptoms)? @ -Complicated Side effects of treatment? @ -no Exacerbation, Progression, or Severe Exacerbation? @ -exacerbation Poses a threat to life or bodily function? How? (Chest pain, [place], [place], pneumonia, PE, COPD, DKA, ARF, appy, cholecystitis, CVA, Diverticulitis, Homicidal, Suicidal, threat to staff... and all critical care pts) @ -yes acute gi bleed Reevaluation #5: Differential GI Bleed: Esophageal varices, aortoenteric fistula, Latrice-Fischer, gastritis, peptic ulcer disease, diverticulosis, inflammatory bowel disease, hemorrhoids, fissure, colitis, malignancy, Meckel's diverticulum, this is not meant to be an all- inclusive list. - Consultations Consultation #1: Spoke with [facility] who accept the patient for transfer Medical Decision Making - Medical Decision Making 68 male to the ER for evaluation of multiple bright red blood bowel movements here in the ER will transfer to definitive care at [facility] who is GI we do not have GI in this hospital - Lab Data Result diagrams: 04/02/24 01:40 04/02/24 00:29 Lab Results 04/02/24 04/02/24 04/02/24 Range/Units 00:29 00:29 00:29 WBC 7.2 (3.8-10.6) k/uL RBC 5.04 (4.30-5.90) m/uL Hgb 15.7 (13.0-17.5) gm/dL Hct 45.9 (39.0-53.0) % MCV 91.0 (80.0-100.0) fL MCH 31.2 (25.0-35.0) pg MCHC 34.3 (31.0-37.0) g/dL RDW 12.8 (11.5-15.5) % Plt Count 238 (150-450) k/uL MPV 8.8 Neutrophils % 53 % Lymphocytes % 37 % Monocytes % 6 % Eosinophils % 2 % Basophils % 1 % Neutrophils # 3.8 (1.3-7.7) k/uL Lymphocytes # 2.7 (1.0-4.8) k/uL Monocytes # 0.4 (0-1.0) k/uL Eosinophils # 0.2 (0-0.7) k/uL Basophils # 0.0 (0-0.2) k/uL PT 11.1 (10.0-12.5) sec INR 1.0 (<1.2) APTT 25.1 (22.0-30.0) sec Sodium 135 L (137-145) mmol/L Potassium 4.8 (3.5-5.1) mmol/L Chloride 105 (98-107) mmol/L Carbon Dioxide 20 L (22-30) mmol/L Anion Gap 10 mmol/L BUN 17 (9-20) mg/dL Creatinine 1.01 (0.66-1.25) mg/dL Est GFR (CKD-EPI)AfAm 88 (>60 ml/min/1.73 sqM) Est GFR (CKD-EPI)NonAf 76 (>60 ml/min/1.73 sqM) Glucose 101 H (74-99) mg/dL Plasma Lactic Acid Mckay (0.7-2.0) mmol/L Calcium 8.7 (8.4-10.2) mg/dL Magnesium 1.8 (1.6-2.3) mg/dL Total Bilirubin 1.0 (0.2-1.3) mg/dL AST 40 (17-59) U/L ALT 22 (4-49) U/L Alkaline Phosphatase 73 (38-126) U/L Ammonia (<30) umol/L Troponin I (0.000-0.034) ng/mL Total Protein 6.9 (6.3-8.2) g/dL Albumin 4.0 (3.5-5.0) g/dL Blood Type Blood Type Confirm Blood Type Recheck Bld Type Recheck Status Antibody Screen Spec Expiration Date 04/02/24 04/02/24 04/02/24 Range/Units 00:29 00:29 00:29 WBC (3.8-10.6) k/uL RBC (4.30-5.90) m/uL Hgb (13.0-17.5) gm/dL Hct (39.0-53.0) % MCV (80.0-100.0) fL MCH (25.0-35.0) pg MCHC (31.0-37.0) g/dL RDW (11.5-15.5) % Plt Count (150-450) k/uL MPV Neutrophils % % Lymphocytes % % Monocytes % % Eosinophils % % Basophils % % Neutrophils # (1.3-7.7) k/uL Lymphocytes # (1.0-4.8) k/uL Monocytes # (0-1.0) k/uL Eosinophils # (0-0.7) k/uL Basophils # (0-0.2) k/uL PT (10.0-12.5) sec INR (<1.2) APTT (22.0-30.0) sec Sodium (137-145) mmol/L Potassium (3.5-5.1) mmol/L Chloride (98-107) mmol/L Carbon Dioxide (22-30) mmol/L Anion Gap mmol/L BUN (9-20) mg/dL Creatinine (0.66-1.25) mg/dL Est GFR (CKD-EPI)AfAm (>60 ml/min/1.73 sqM) Est GFR (CKD-EPI)NonAf (>60 ml/min/1.73 sqM) Glucose (74-99) mg/dL Plasma Lactic Acid Mckay 1.2 (0.7-2.0) mmol/L Calcium (8.4-10.2) mg/dL Magnesium (1.6-2.3) mg/dL Total Bilirubin (0.2-1.3) mg/dL AST (17-59) U/L ALT (4-49) U/L Alkaline Phosphatase (38-126) U/L Ammonia 32 H (<30) umol/L Troponin I <0.012 (0.000-0.034) ng/mL Total Protein (6.3-8.2) g/dL Albumin (3.5-5.0) g/dL Blood Type Blood Type Confirm A Positive Blood Type Recheck Bld Type Recheck Status Antibody Screen Spec Expiration Date 04/02/24 04/02/24 Range/Units 01:35 01:40 WBC 5.9 (3.8-10.6) k/uL RBC 4.40 (4.30-5.90) m/uL Hgb 13.5 (13.0-17.5) gm/dL Hct 39.6 (39.0-53.0) % MCV 90.0 (80.0-100.0) fL MCH 30.7 (25.0-35.0) pg MCHC 34.2 (31.0-37.0) g/dL RDW 13.1 (11.5-15.5) % Plt Count 193 (150-450) k/uL MPV 9.9 Neutrophils % 54 % Lymphocytes % 34 % Monocytes % 7 % Eosinophils % 2 % Basophils % 1 % Neutrophils # 3.2 (1.3-7.7) k/uL Lymphocytes # 2.0 (1.0-4.8) k/uL Monocytes # 0.4 (0-1.0) k/uL Eosinophils # 0.1 (0-0.7) k/uL Basophils # 0.0 (0-0.2) k/uL PT (10.0-12.5) sec INR (<1.2) APTT (22.0-30.0) sec Sodium (137-145) mmol/L Potassium (3.5-5.1) mmol/L Chloride (98-107) mmol/L Carbon Dioxide (22-30) mmol/L Anion Gap mmol/L BUN (9-20) mg/dL Creatinine (0.66-1.25) mg/dL Est GFR (CKD-EPI)AfAm (>60 ml/min/1.73 sqM) Est GFR (CKD-EPI)NonAf (>60 ml/min/1.73 sqM) Glucose (74-99) mg/dL Plasma Lactic Acid Mckay (0.7-2.0) mmol/L Calcium (8.4-10.2) mg/dL Magnesium (1.6-2.3) mg/dL Total Bilirubin (0.2-1.3) mg/dL AST (17-59) U/L ALT (4-49) U/L Alkaline Phosphatase (38-126) U/L Ammonia (<30) umol/L Troponin I (0.000-0.034) ng/mL Total Protein (6.3-8.2) g/dL Albumin (3.5-5.0) g/dL Blood Type A Positive Blood Type Confirm Blood Type Recheck No Previous Record Bld Type Recheck Status CABO Indicated Antibody Screen NEGATIVE Spec Expiration Date 04/05/2024 3882 - Radiology Data Radiology results: report reviewed (CT abdomen pelvis negative for acute disease), image reviewed Critical Care Time Critical Care Time: Yes Total Critical Care Time: 31 Disposition Clinical Impression: Lower gastrointestinal hemorrhage Disposition: OTHER INSTITUTION NOT DEFINED Condition: Serious Is patient prescribed a controlled substance at d/c from ED?: No Referrals: Yuniel Be DO [Primary Care Provider] - 1-2 days Time of Disposition: 03:00 - Out of Hospital Transfer - Req. Specs Out of Hospital Transfer - Requested Specifics: Other Emergency Center ([facility])
[2024-04-02] MEDS: SODIUM CHLORIDE 0.9% 1,000 ML IV STA (00:35)
[2024-04-02] MEDS: PANTOPRAZOLE 40 MG/10 ML VIAL IVP STA (00:36)
[2024-04-02] MEDS: ONDANSETRON 4 MG/2 ML VIAL IVP STA (00:36)
[2024-04-02 01:02] LABS: Basophils % (A) 1 %; Eosinophils # (A) 0.2 k/uL (0-0.7); Eosinophils % (A) 2 %; HCT 45.9 % (39.0-53.0); HGB 15.7 gm/dL (13.0-17.5); Lymphocytes # (A) 2.7 k/uL (1.0-4.8); Lymphocytes % (A) 37 %; MCH 31.2 pg (25.0-35.0); MCHC 34.3 g/dL (31.0-37.0); Mean Platelet Volume 8.8; Monocytes # (A) 0.4 k/uL (0-1.0); Monocytes % (A) 6 %; Neutrophils # (A) 3.8 k/uL (1.3-7.7); Neutrophils % (A) 53 %; Platelet Count 238 k/uL (150-450); RBC 5.04 m/uL (4.30-5.90); RDW 12.8 % (11.5-15.5); WBC 7.2 k/uL (3.8-10.6)
[2024-04-02 01:30] LABS: Lactic Acid, Venous 1.2 mmol/L (0.7-2.0)
[2024-04-02 01:31] LABS: ALT 22 U/L (4-49); African American GFR (CKD) 88 (>60 ml/min/1.73 sqM); Anion Gap 10 mmol/L; Blood Urea Nitrogen 17 mg/dL (9-20); Calcium 8.7 mg/dL (8.4-10.2); Carbon Dioxide 20 mmol/L (22-30); Chloride 105 mmol/L (98-107); Glucose 101 mg/dL (74-99); Non-African American GFR(CKD) 76 (>60 ml/min/1.73 sqM); Sodium 135 mmol/L (137-145)
[2024-04-02 01:34] LABS: Partial Thromboplastin Time 25.1 sec (22.0-30.0); Prothrombin Time 11.1 sec (10.0-12.5)
[2024-04-02 01:50] LABS: AST 40 U/L (17-59); Alkaline Phosphatase 73 U/L (38-126); Magnesium 1.8 mg/dL (1.6-2.3); Potassium 4.8 mmol/L (3.5-5.1); Total Protein 6.9 g/dL (6.3-8.2)
[2024-04-02 02:30] LABS: Basophils % (A) 1 %; Eosinophils # (A) 0.1 k/uL (0-0.7); Eosinophils % (A) 2 %; HCT 39.6 % (39.0-53.0); HGB 13.5 gm/dL (13.0-17.5); Lymphocytes % (A) 34 %; MCH 30.7 pg (25.0-35.0); MCHC 34.2 g/dL (31.0-37.0); Mean Platelet Volume 9.9; Monocytes # (A) 0.4 k/uL (0-1.0); Monocytes % (A) 7 %; Neutrophils # (A) 3.2 k/uL (1.3-7.7); Neutrophils % (A) 54 %; Platelet Count 193 k/uL (150-450); RDW 13.1 % (11.5-15.5); WBC 5.9 k/uL (3.8-10.6)
[2024-04-02 02:57] VITALS: BP 132/94; PULSE 68
--- NOTE | 2024-04-02 03:29 | CT ---
EXAM: CT Abdomen and Pelvis With Intravenous Contrast CLINICAL HISTORY: ITS.REASON CT Reason: GIB,pain TECHNIQUE: Axial computed tomography images of the abdomen and pelvis with intravenous contrast. CTDI is 19.6 mGy and DLP is 841.3 mGy-cm. This CT exam was performed using one or more of the following dose reduction techniques: automated exposure control, adjustment of the mA and/or kV according to patient size, and/or use of iterative reconstruction technique. COMPARISON: No relevant prior studies available. FINDINGS: Lung bases: Unremarkable. No mass. No consolidation. ABDOMEN: Liver: Low attenuation foci in the liver consistent with hepatic cysts. No follow-up is necessary. Gallbladder and bile ducts: Unremarkable. No calcified stones. No ductal dilation. Pancreas: Unremarkable. No mass. No ductal dilation. Spleen: Unremarkable. No splenomegaly. Adrenals: Unremarkable. No mass. Kidneys and ureters: Unremarkable. No solid mass. No hydronephrosis. Stomach and bowel: No evidence of bowel obstruction. Colonic diverticulosis. No evidence of diverticulitis. Liquid colonic contents. Findings can be seen with sequela of diarrheal illness. PELVIS: Appendix: Normal appendix. Bladder: Unremarkable. No mass. Reproductive: Unremarkable as visualized. ABDOMEN and PELVIS: Intraperitoneal space: Unremarkable. No free air. No significant fluid collection. Bones/joints: Degenerative changes in the spine. No acute fracture. No dislocation. Soft tissues: Umbilical hernia containing fat. Left inguinal hernia containing fat. Vasculature: Unremarkable. No abdominal aortic aneurysm. Lymph nodes: Unremarkable. No enlarged lymph nodes. IMPRESSION: 1. Normal appendix. 2. No evidence of bowel obstruction. 3. Colonic diverticulosis. No evidence of diverticulitis. 4. Liquid colonic contents. Findings can be seen with sequela of diarrheal illness. 5. No other acute findings. 6. Incidental findings as described.
== END 2024-04-02 03:14 | disposition other institution (70) ==
LOC: EC 23:52
DX: K62.5 Hemorrhage of anus and rectum (principal)
CPT/HCPCS: 36415; 86900; 86901; 80053; 82140; 83605; 83735; 84484; 85025; 85610; 85730; 86850; 74177; 99291; 96374; 96375; 96361; J2405; Q9967; J2470